=== PATIENT | female | born 1940 | race Caucasian/White ===

== ENCOUNTER 2016-04-06 13:19 | Inpatient (IN) | payer OTHER, MEDICARE ==
[~2016-04-06] VITALS: Ht 170.2 cm; Wt 61.7 kg
[2016-04-06] MEDS ORDERED: FENTANYL PF 100 MCG/2 ML VIAL. ONE (13:51)
[2016-04-06] MEDS ORDERED: FENTANYL PF 100 MCG/2 ML VIAL. IV ONE ×3 (14:00→16:00)
--- NOTE | 2016-04-06 14:49 | RAD ---
CT of the head without contrast, 04/06/2016: History: Fall, possible hemorrhage The ventricles are within normal limits in size. There is no shift of the midline structures. There is no evidence of acute intracranial hemorrhage or mass effect. Minimal deep white matter lucencies are noted bilaterally compatible with chronic ischemic change. IMPRESSION: 1. Minimal bilateral deep white matter lucencies suggesting chronic ischemic change. 2. No acute intracranial abnormality is detected. PQRS Compliance Statement: One or more of the following individualized dose reduction techniques were utilized for this examination: 1. Automated exposure control 2. Adjustment of the mA and/or kV according to patient size 3. Use of iterative reconstruction technique
--- NOTE | 2016-04-06 15:41 | RAD ---
Pelvis with right hip, 2 views, 04/06/2016: History: Fall, pain There is a subcapital fracture of the right femoral neck. There is anterior displacement of the distal fracture fragment. The femoral head is seated within the acetabulum. The hip joints are fairly well-maintained. No other fracture or dislocation is identified. IMPRESSION: Acute subcapital fracture of the right femoral neck
--- NOTE | 2016-04-06 15:44 | RAD ---
Right knee, 3 views, 04/06/2016: History: Fall, injury This study was limited due to poor patient mobility related to her known hip fracture. No acute fracture or dislocation is identified. There is mild spurring at the knee joint and at the patellofemoral articulation. Moderate chondrocalcinosis is evident. IMPRESSION: 1. Degenerative change with chondrocalcinosis. 2. No acute bony abnormality is detected.
--- NOTE | 2016-04-06 15:54 | PHYS DOC ---
Past Medical History Past Medical History: Migraines Past Surgical History: Hysterectomy Additional Past Surgical Histo: breast abcess Alcohol Use: None Drug Use: None Adult General Chief Complaint Chief Complaint: HIP PAIN HPI HPI 75-year-old female who fell onto her right side after tripping. She does believe she hit her head but does not believe she had any loss of conscious. Patient now is unable to bear weight on that side and has significant pain in her right hip as well as her right knee. She denies any significant headache. She denies taking any blood thinners. Review of Systems Review of Systems Constitutional: Denies fever or chills [] Eyes: Denies change in visual acuity, redness, or eye pain [] HENT: Denies nasal congestion or sore throat [] Respiratory: Denies cough or shortness of breath [] Cardiovascular: No additional information not addressed in HPI [] GI: Denies abdominal pain, nausea, vomiting, bloody stools or diarrhea [] : Denies dysuria or hematuria [] Musculoskeletal: Denies back pain, has joint pain [] Integument: Denies rash or skin lesions [] Neurologic: Denies headache, focal weakness or sensory changes [] Endocrine: Denies polyuria or polydipsia [] Current Medications Current Medications Current Medications Medications (Trade) Dose Ordered Sig/[facility] Start Time Stop Time Status Last Admin Dose Admin Fentanyl Citrate (Fentanyl 2ml Vial) 25 mcg 1X ONCE 04/06/16 14:45 04/06/16 14:46 DC 04/06/16 14:55 25 MCG Allergies Allergies Physical Exam Physical Exam Constitutional: Well developed, well nourished, no acute distress, non-toxic appearance. [] HENT: Normocephalic, atraumatic, bilateral external ears normal, oropharynx moist, no oral exudates, nose normal. [] Eyes: PERRLA, EOMI, conjunctiva normal, no discharge. [] Neck: Normal range of motion, no tenderness, supple, no stridor. [] Cardiovascular:Heart rate regular rhythm, no murmur [] Lungs & Thorax: Bilateral breath sounds clear to auscultation [] Abdomen: Bowel sounds normal, soft, no tenderness, no masses, no pulsatile masses. [] Skin: Warm, dry, no erythema, no rash. [] Back: No tenderness, no CVA tenderness. [] Extremities: Moderate tenderness to the right hip, the right lower extremity is shortened and externally rotated, no cyanosis, no clubbing, ROM is not intact in the right lower extremity, no edema. [] Neurologic: Alert and oriented X 3, normal motor function, normal sensory function, no focal deficits noted. [] Psychologic: Affect normal, judgement normal, mood normal. [] Current Patient Data Vital Signs Vital Signs Date Time Temp Pulse Resp B/P Pulse Ox O2 Delivery O2 Flow Rate FiO2 04/06/16 15:30 76 18 157/91 98 Room Air 04/06/16 13:20 97.9 97.9 EKG EKG EKG interpreted by me shows a sinus rhythm with a rate of 81 bpm. This is a normal EKG. There are no acute ischemic findings seen. Radiology/Procedures Radiology/Procedures CT of the head without contrast demonstrates the following: The ventricles are within normal limits in size. There is no shift of the midline structures. There is no evidence of acute intracranial hemorrhage or mass effect. Minimal deep white matter lucencies are noted bilaterally compatible with chronic ischemic change. Right hip film demonstrated an acute subcapital femoral neck fracture. Films of the right knee did not demonstrate any acute fractures. Course & Med Decision Making Course & Med Decision Making Pertinent Labs and Imaging studies reviewed. (See chart for details) This 75-year-old female who's had a slip and fall onto her right hip has an acute subcapital femoral neck fracture. I discussed the need for operative management with the orthopedic surgeon, Dr. Macario, who agreed that the patient can eat tonight but be kept nothing by mouth at midnight for likely surgery tomorrow. She will be put on bedrest and nonweightbearing precautions. Pain medications will be ordered as needed. She was admitted to the hospitalist, Dr. Brito, for further evaluation and treatment. Dragon Disclaimer Dragon Disclaimer This electronic medical record was generated, in whole or in part, using a voice recognition dictation system. Departure Departure Impression: Primary Impression: Closed right hip fracture Disposition: ADMITTED INPATIENT Admitting Physician: Symone Brito Condition: STABLE Referrals: IRASEMA SALEEM (PCP) JUDY MONTOYA DO Apr 06, 2016 15:54
[2016-04-06] MEDS ORDERED: ONDANSETRON PF 4 MG/2 ML VIAL. IV PRN (16:00)
[2016-04-06] MEDS ORDERED: FENTANYL PF 100 MCG/2 ML VIAL. IV PRN (16:00)
--- NOTE | 2016-04-06 16:45 | ACF ---
Admission Forms Criteria MUSCULOSKELETAL DISEASE GRG Clinical Indications for Admission to Inpatient Care (Place 'X' for any and all applicable criteria): Hospital admission is needed for appropriate care of the patient because of ANY ONE of the following: [X]I. Fracture, dislocation, or other musculoskeletal injury requiring inpatient care(medical) as indicated by ANY ONE of the following(4)(5)(6)(7) [ ]a) Vertebral fracture requiring observation for instability or neurologic compromise (8) [ ]b) Compartment syndrome (proven or cannot be ruled out during observation level of care) (9) [ ]c) Limb-threatening injury [ ]d) Major injury requiring inpatient stabilization such as traction initiation or external fixation before internal fixation or closure of complex or open fracture [X]e) Major injury requiring inpatient treatment after emergency or observation level care (as appropriate) [ ]f) Severe pain requiring acute inpatient management [ ]II. Newly diagnosed or suspected bone, joint, or orthopedic device infection (e.g., osteomyelitis, septic arthritis) needing ANY ONE of the following(1)(2)(3) [ ]a) IV antibiotics that cannot be initiated in other than inpatient setting (e.g., patient too unstable or home infusion not available) [ ]b) Device removal or replacement [ ]c) Bone or soft tissue debridement [ ]d) Joint drainage (drain placement or repetitive aspirations) [ ]III. Severe rheumatologic disease (e.g., systemic lupus erythematosus, rheumatoid arthritis) with complications or comorbidities (Also use Optimal Recovery Care Criteria or General Recovery Criteria as appropriate on the basis of predominant condition), including ANY ONE of the following(10 )(11)(12)(13) [ ]a) Severe infection (e.g., INSTALLMENT DEALER infection, sepsis) (14) [ ]b) Respiratory complications, including ANY ONE of the following: [ ]i) Pleural effusion with respiratory compromise [ ]ii) Pulmonary hypertension with congestive failure [ ]iii) Respiratory failure [ ]iv) Pulmonary hemorrhage (15) [ ]c) Hematologic disease, including ANY ONE of the following: [ ]i) Coagulopathy with bleeding [ ]ii) Thrombosis with hypercoagulable state [ ]iii) Thrombotic thrombocytopenic purpura [ ]d) Cerebritis with seizures, psychosis, or other severe abnormalities [ ]e) Vertebral destruction with monitoring needed for cervical myelopathy& possible respiratory compromise [ ]f) Exacerbation that requires inpatient treatment (e.g., intravenous immunosuppression) (16) [ ]g) Acute renal failure [ ]IV. Severe vasculitis with complications or comorbidities (Also use Optimal Recovery Care Criteria or General Recovery Criteria as appropriate on the basis of predominant condition), including ANY ONE of the following(11)(12)(17)(18)(19)(20) [ ]a) INSTALLMENT DEALER vasculitis with seizures, psychosis, or other severe abnormalities (22) [ ]b) Renal failure (16) [ ]c) Pulmonary hemorrhage (15) [ ]d) Cerebral infarction [ ]e) Gastrointestinal ischemia [ ]f) Gangrene or threatened amputation [ ]g) Exacerbation that requires inpatient treatment (e.g., intravenous immunosuppression) (19)(21) [ ]V. Severe myopathy as indicated by ANY ONE of the following (28)(29) [ ]a) New onset of airway compromise or inability to swallow [ ]b) Respiratory deterioration with observation needed for impending respiratory failure [ ]c) Exacerbation that requires inpatient treatment (e.g., intravenous immunosuppression) [ ]. Severe gout (crystal arthropathy) as indicated by ANY ONE of the following (23)(24) [ ]a) Severe pain requiring acute inpatient management [ ]b) Exacerbation that requires inpatient treatment (e.g., intravenous treatment) [ ]VII.Rhabdomyolysis and ANY ONE of the following (25)(26)(27) [ ]a) Acute renal failure [ ]b) Need for intravenous hydration after emergency or observation level care (as appropriate) [ ]c) Inability to maintain oral hydration [ ]d) Change in mental status [ ]e) Electrolyte abnormality that remains after emergency or observation level care (as appropriate) [ ]VIII Post amputation complication, as indicated by ANY ONE of the following [ ]a) Infection [ ]b) Dehiscence [ ]c) Myodesis failure [ ]IX. Severe pain requiring acute inpatient management as indicated by ALL of the following (30)(31)(32) [ ]a) Continuous or frequent (e.g., every 2 to 4 hrs) parenteral analgesics required [A] [ ]b) Rapid improvement expected from treatment or acute intervention ( e.g., surgery, anesthesia procedure[B] [ ]X. Musculoskeletal Disease and ALL of the following: [ ]a) Symptom or finding for which emergency and observation care have failed or are not considered appropriate (Use General Criteria: Observation Care as appropriate) [ ]b) Presence of ANY ONE of the following [ ]i) A General Admission Criteria [ ]ii) A Pediatric General Admission Criteria The original [facility] content created by [facility] has been revised. The portions of the content which have been revised are identified through the use of italic text or in bold, and [facility] has neither reviewed nor approved the modified material. All other unmodified content is copyright [facility]. Please see references footnoted in the original [facility] edition 2016 Admission Criteria Met?: Yes CRISTAL PUGA Apr 06, 2016 16:45
--- NOTE | 2016-04-06 18:06 | PDOC1 ---
History and Physical Date of Admission Date of Admission DATE: 04/06/16 TIME: 18:02 Identification/Chief Complaint Chief Complaint fall, hip pain Source Source: Chart review, Patient History of Present Illness History of Present Illness Ms. 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 She does not know how she fell, no prodrome, no change, no LOC, does not think she tripped, just fell. Fell on her right hip and acute pain could not walk pain pain 9.10, right hip no nausea has declined morphine, as "it has made me feel weird before" doesnt like to take narcotics Past Medical History Cardiovascular: No pertinent hx Pulmonary: No pertinent hx GI: No pertinent hx Heme/Onc: No pertinent hx Hepatobiliary: No pertinent hx Psych: No pertinent hx Family History Family History she lives alone, not , cannot think of any friends to care for her cats or anyone to be DPOA Social History Smoke: No ALCOHOL: none Drugs: None Current Problem List Problem List Problems Medical Problems: (1) Closed right hip fracture Status: Acute Problems: Current Medications Current Medications Current Medications Fentanyl Citrate (Fentanyl 2ml Vial) 100 mcg STK-MED ONCE .ROUTE ; Start at 13:51; Stop 04/06/16 at 13:52; Status DC Fentanyl Citrate (Fentanyl 2ml Vial) 25 mcg 1X ONCE IV Last administered on 14:12; Start 04/06/16 at 14:00; Stop 04/06/16 at 14:01; Status DC Fentanyl Citrate (Fentanyl 2ml Vial) 25 mcg 1X ONCE IV Last administered on 14:55; Start 04/06/16 at 14:45; Stop 04/06/16 at 14:46; Status DC Fentanyl Citrate (Fentanyl 2ml Vial) 50 mcg 1X ONCE IV Last administered on 17:13; Start 04/06/16 at 16:00; Stop 04/06/16 at 16:01; Status DC Ondansetron HCl (Zofran) 4 mg PRN Q8HRS PRN IV NAUSEA/VOMITING Last administered on 04/06/16 17:13; Start 04/06/16 at 16:00; Stop 04/07/16 at 15:59 Fentanyl Citrate (Fentanyl 2ml Vial) 50 mcg PRN Q2HR PRN IV PAIN; Start at 16:00; Stop 04/07/16 at 15:59 Allergies Allergies: Coded Allergies: ibuprofen (Verified Allergy, Intermediate, 12/06/15) ROS General: No: Appetite, Chills, Fatigue, Malaise, Night Sweats, Other PSYCHOLOGICAL ROS: No: Anxiety, Behavioral Disorder, Concentration difficultie , Decreased libido, Depression, Disorientation, Hallucinations, Hostility, Irritablity, Memory difficulties, Mood Swings, Obsessive thoughts, Other, Physical abuse, Sexual abuse, Sleep disturbances, Suicidal ideation Eyes: No Blurry vision, No Decreased vision, No Double vision, No Dry eyes, No Excessive tearing, No Eye Pain, No Itchy Eyes, No Loss of vision, No Other, No Photophobia, No Scotomata, No Uses contacts, No Uses glasses HEENT: No: Epistaxis, Heacaches, Hearing change, Nasal congestion, Nasal discharge, Oral lesions, Other, Sinus pain, Sneezing, Snoring, Sore Throat, Tinnitus, Vertigo, Visual Changes, Vocal changes Cardiovascular: No Chest Pain, No Edema, No Lt Headedness, No Orthopnea, No Other, No Palpitations, No Paroxysmal Noc. Dyspnea Gastrointestinal: No Abdominal Pain, No Constipation, No Diarrhea, No Hematochezia, No Melena, No Nausea, No Other, No Vomiting Genitourinary: No , No , No , No , No , No , No , No Discharge, No Dysuria, No Flank Pain, No Frequency, No Hematuria, No Incontinence, No Other, No Pain, No Retention, No Urgency Musculoskeletal: Yes Gait Disturbance, Yes Joint Pain, Yes Joint Stiffness, Yes Pain In:, No Joint Swelling, No Muscle Pain, No Muscular Weakness, No Other, No Swelling In: Neurological: Yes Gait Disturbance, No Behavorial Changes, No Bowel/Bladder ControlChng, No Confusion, No Dizziness, No Headaches, No Impaired Coord/balance, No Memory Loss, No Numbness/ Tingling, No Other, No Seizures, No Speech Problems, No Tremors, No Visual Changes, No Weakness Skin: No Acne, No Dry Skin, No Eczema, No Hair Changes, No Lumps, No Mole Changes, No Mottling, No Nail Changes, No Other, No Pruritus, No Rash, No Skin Lesion Changes Physical Exam Physical Exam appears younger than chronological age General: Alert, Oriented X3, Cooperative, mild distress, moderate distress HEENT: Atraumatic, PERRLA, EOMI Lungs: Clear to auscultation, Normal air movement Heart: S1S2 Extremities: No clubbing, No edema, Normal pulses Skin: No rashes Neuro: Normal gait, Normal speech, Normal tone, Sensation intact, Cranial nerves 3-12 NL, Other (good str) Psych/Mental Status: Mental status NL, Mood NL Vitals Vitals Vital Signs Date Time Temp Pulse Resp B/P Pulse Ox O2 Delivery O2 Flow Rate FiO2 04/06/16 15:00 88 16 158/80 99 Room Air 04/06/16 13:20 97.9 97.9 VTE Prophylaxis Ordered VTE Prophylaxis Devices: Contraindicated VTE Pharmacological Prophylaxi: No Assessment/Plan Assessment/Plan Acute subcapital fracture of the right femoral neck right hip fracture w. acute hip pain, 9/10, IV and Po pain med. all labs pending, Toradol IV if Creatinine OK admit, Ortho consult [place], cannot transfer or roll ADRIAN JENSEN MD Apr 06, 2016 18:06
[2016-04-06] MEDS ORDERED: KETOROLAC 15 MG/ML VIAL. IV ONE (18:15)
[2016-04-06] MEDS ORDERED: OXYCODONE/APAP 5/325 TABLET. PO PRN (18:15)
[2016-04-06 19:06] LABS: BASO # 0.1 x10^3/uL (0.0-0.2); BASO % 1 % (0-3); EOS % 0 % (0-3); HEMATOCRIT 40.9 % (36.0-47.0); HEMOGLOBIN 13.1 g/dL (12.0-15.5); LYMPH % 7 % (24-48); MEAN CORPUSCULAR HEMOGLOBIN 30 pg (25-35); MEAN CORPUSCULAR HGB CONC 32 g/dL (31-37); MEAN CORPUSCULAR VOLUME 93 fL (79-100); MONO % 4 % (0-9); NEUT % 88 % (31-73); PLATELET COUNT 171 x10^3/uL (140-400); RED CELL DISTRIBUTION WIDTH 14.2 % (11.5-14.5); WHITE BLOOD COUNT 13.5 x10^3/uL (4.0-11.0)
[2016-04-06 19:23] LABS: ALBUMIN 3.9 g/dL (3.4-5.0); ALBUMIN/GLOBULIN RATIO 1.1 (1.0-1.7); CALCIUM 9.1 mg/dL (8.5-10.1); CREATININE 0.7 mg/dL (0.6-1.0); POTASSIUM 3.3 mmol/L (3.5-5.1); TOTAL BILIRUBIN 0.8 mg/dL (0.2-1.0); TOTAL PROTEIN 7.4 g/dL (6.4-8.2)
[2016-04-06 19:31] LABS: PLT ESTIMATE ADEQUATE (ADEQUATE)
[2016-04-06] MEDS ORDERED: PROP10TA PO (20:03)
[2016-04-06] MEDS ORDERED: KETOROLAC 15 MG/ML VIAL. IV PRN (20:15)
[2016-04-06] MEDS ORDERED: POTASSIUM CHLORIDE 20 MEQ TABLET.ER. PO ONE (20:15)
[2016-04-06] MEDS: TRAMADOL 50 MG TABLET. PO PRN (21:20)
[2016-04-06] MEDS: PROPRANOLOL 10 MG TABLET. PO SCH (21:20)
[2016-04-06 21:59] VITALS: BP 126/72
[2016-04-06] MEDS: ZOLPIDEM 5 MG TABLET. PO PRN (23:00)
[2016-04-06] MEDS: FENTANYL PF 100 MCG/2 ML VIAL. IV PRN (23:22)
[2016-04-06 23:38] VITALS: BP 138/78
[2016-04-07] VITALS (12 sets, daily range): BP systolic 103–150; BP diastolic 68–83
[2016-04-07] MEDS: FENTANYL PF 100 MCG/2 ML VIAL. IV PRN (01:47)
[2016-04-07 06:28] LABS: BASO % 0 % (0-3); EOS % 0 % (0-3); HEMOGLOBIN 13.4 g/dL (12.0-15.5); LYMPH # 1.6 x10^3/uL (1.0-4.8); LYMPH % 11 % (24-48); MEAN CORPUSCULAR HEMOGLOBIN 30 pg (25-35); MEAN CORPUSCULAR HGB CONC 33 g/dL (31-37); MEAN CORPUSCULAR VOLUME 91 fL (79-100); MONO % 6 % (0-9); NEUT % 83 % (31-73); PLATELET COUNT 187 x10^3/uL (140-400); WHITE BLOOD COUNT 14.2 x10^3/uL (4.0-11.0)
[2016-04-07 06:30] LABS: CREATININE 0.7 mg/dL (0.6-1.0); POTASSIUM 3.6 mmol/L (3.5-5.1)
--- NOTE | 2016-04-07 07:46 | EKG ---
[facility] [address] [place] [address] Test Date: 2016-04-06 Test Time: 17:04:28 Pat Name: IRASEMA REN Department: Room: Gender: F Messaging Architect: : [id number] Requested By: JUDY MONTOYA Order Number: [id number] Reading MD: Measurements Intervals [place] Rate: 81 P: 60 LA: 150 QRS: 34 QRSD: 86 T: 56 QT: 374 QTc: 435 Interpretive Statements SINUS RHYTHM NO SPECIFIC ECG ABNORMALITIES RI6.01 No previous ECG available for comparison
[2016-04-07] MEDS ORDERED: VANCOMYCIN 1 GM VIAL. ONE (08:13)
[2016-04-07] MEDS ORDERED: TOBRAMYCIN POWDER 1.2 GM VIAL. ONE (08:13)
[2016-04-07] MEDS ORDERED: DIPHENHYDRAMINE 50 MG/ML VIAL IV PRN (09:00)
[2016-04-07] MEDS ORDERED: PROCHLORPERAZINE 10 MG/2 ML VIAL. IV PRN (09:00)
[2016-04-07] MEDS ORDERED: MORPHINE SULFATE 4 MG/ML DISP.SYRIN. IV PRN ×2 (09:00→14:00)
[2016-04-07] MEDS ORDERED: HYDROMORPHONE 2 MG/ML VIAL. IV PRN (09:00)
[2016-04-07] MEDS ORDERED: MEPERIDINE PF 25 MG/ML VIAL. IV PRN (09:00)
[2016-04-07] MEDS ORDERED: FENTANYL PF 100 MCG/2 ML VIAL. IV PRN ×2 (09:00→14:00)
[2016-04-07] MEDS: PROPRANOLOL 10 MG TABLET. PO SCH ×2 (09:16→21:17)
[2016-04-07] MEDS ORDERED: CEFAZOLIN 1GM IVPB FOR OMNI 50 ML IV PRN (09:45)
[2016-04-07] MEDS: IV RINGERS,LACTATED 1000ML 1,000 ML IV SCH ×2 (11:10→21:15)
[2016-04-07] MEDS ORDERED: PROPOFOL 100 ML IV ONE (11:30)
[2016-04-07] MEDS ORDERED: KETAMINE HCL 500 MG/10 ML VIAL. ONE (11:32)
[2016-04-07] MEDS ORDERED: ONDANSETRON PF 4 MG/2 ML VIAL. ONE (11:36)
[2016-04-07] MEDS ORDERED: DEXAMETHASONE SOD PHOS 20 MG/5 ML VIAL. ONE (11:36)
[2016-04-07] MEDS ORDERED: FAMOTIDINE 20 MG/2 ML VIAL ONE (11:36)
[2016-04-07] MEDS ORDERED: FENTANYL PF 100 MCG/2 ML VIAL. ONE (11:38)
--- NOTE | 2016-04-07 11:56 | PDOC ---
PROGRESS NOTES Chief Complaint Chief Complaint R hip fx s/p fall ASSESSMENT AND PLAN: 1. R hip fx: ORIF today by Dr Macario 2. Pain control: IV and PO narcotics PRN 3. Prophylaxis: in AM Vitals Vitals Vital Signs Date Time Temp Pulse Resp B/P Pulse Ox O2 Delivery O2 Flow Rate FiO2 04/07/16 10:39 99.6 82 20 148/80 95 Room Air 99.6 Physical Exam General: Alert, Oriented X3, Cooperative, mild distress, moderate distress Heart: Regular rate Lungs: Clear Abdomen: Normal bowel sounds, No tenderness Extremities: No clubbing, No edema, Normal pulses Skin: No rashes Labs LABS Laboratory Tests Test 04/06/16 18:50 04/07/16 05:40 White Blood Count 13.5x10^3/uL (4.0-11.0) 14.2x10^3/uL (4.0-11.0) Red Blood Count 4.40x10^6/uL (3.50-5.40) 4.50x10^6/uL (3.50-5.40) Hemoglobin 13.1g/dL (12.0-15.5) 13.4g/dL (12.0-15.5) Hematocrit 40.9% (36.0-47.0) 41.0% (36.0-47.0) Mean Corpuscular Volume 93fL (79-100) 91fL (79-100) Mean Corpuscular Hemoglobin 30pg (25-35) 30pg (25-35) Mean Corpuscular Hemoglobin Concent 32g/dL (31-37) 33g/dL (31-37) Red Cell Distribution Width 14.2% (11.5-14.5) 14.0% (11.5-14.5) Platelet Count 171x10^3/uL (140-400) 187x10^3/uL (140-400) Neutrophils (%) (Auto) 88% (31-73) 83% (31-73) Lymphocytes (%) (Auto) 7% (24-48) 11% (24-48) Monocytes (%) (Auto) 4% (0-9) 6% (0-9) Eosinophils (%) (Auto) 0% (0-3) 0% (0-3) Basophils (%) (Auto) 1% (0-3) 0% (0-3) Neutrophils # (Auto) 11.9x10^3uL (1.8-7.7) 11.7x10^3uL (1.8-7.7) Lymphocytes # (Auto) 1.0x10^3/uL (1.0-4.8) 1.6x10^3/uL (1.0-4.8) Monocytes # (Auto) 0.5x10^3/uL (0.0-1.1) 0.9x10^3/uL (0.0-1.1) Eosinophils # (Auto) 0.0x10^3/uL (0.0-0.7) 0.0x10^3/uL (0.0-0.7) Basophils # (Auto) 0.1x10^3/uL (0.0-0.2) 0.0x10^3/uL (0.0-0.2) Segmented Neutrophils % 89% (35-66) Lymphocytes % 6% (24-48) Monocytes % 5% (0-10) Platelet Estimate Adequate (ADEQUATE) Prothrombin Time 13.0SEC (11.7-14.0) Prothromb Time International Ratio 1.0 (0.8-1.1) Sodium Level 137mmol/L (136-145) 133mmol/L (136-145) Potassium Level 3.3mmol/L (3.5-5.1) 3.6mmol/L (3.5-5.1) Chloride Level 101mmol/L (98-107) 96mmol/L (98-107) Carbon Dioxide Level 25mmol/L (21-32) 26mmol/L (21-32) Anion Gap 11 (6-14) 11 (6-14) Blood Urea Nitrogen 11mg/dL (7-20) 10mg/dL (7-20) Creatinine 0.7mg/dL (0.6-1.0) 0.7mg/dL (0.6-1.0) Estimated GFR (Cockcroft-Gault) 82.0 82.0 BUN/Creatinine Ratio 16 (6-20) Glucose Level 120mg/dL (70-99) 122mg/dL (70-99) Calcium Level 9.1mg/dL (8.5-10.1) 9.0mg/dL (8.5-10.1) Total Bilirubin 0.8mg/dL (0.2-1.0) Aspartate Amino Transf (AST/SGOT) 21U/L (15-37) Alanine Aminotransferase (ALT/SGPT) 22U/L (14-59) Alkaline Phosphatase 68U/L (46-116) Total Protein 7.4g/dL (6.4-8.2) Albumin 3.9g/dL (3.4-5.0) Albumin/Globulin Ratio 1.1 (1.0-1.7) Review of Systems Review of Systems hip pain fairly well controlled GIOVANNI MANCIA MD Apr 07, 2016 11:56
[2016-04-07] MEDS ORDERED: TRANEXAMIC ACID 1,000 MG in IV NORMAL SALINE 50ML 50 ML INJ ONE ×2 (12:00→13:00)
[2016-04-07] MEDS ORDERED: MORPHINE SULFATE 5 MG, ROPIVacaine 0.5% PF 60 ML, EPINEPHRINE 0.5 MG in IV NORMAL SALIN... INT ART ONE (12:00)
[2016-04-07] MEDS ORDERED: MIDAZOLAM HCL 2 MG/2 ML VIAL. ONE (12:12)
--- NOTE | 2016-04-07 12:36 | PDOC2 ---
CONSULT Date of Consult Date of Consult DATE: 04/07/16 TIME: 12:28 Identification/Chief Complaint Chief Complaint right hip pain after fall Source Source: Chart review, Patient History of Present Illness Reason for Visit: 75 year old woman who works 2 jobs, lives alone, drives and has 2 pets. She fell at work. She doesn't remember tripping or why she fell. Immediate right hip pain after and inability to ambulate after her fall. Admitted with displaced right hip femoral neck fracture. Past Medical History Cardiovascular: No pertinent hx Pulmonary: No pertinent hx GI: No pertinent hx Heme/Onc: No pertinent hx Hepatobiliary: No pertinent hx Psych: No pertinent hx Social History No ALCOHOL: none Drugs: None Current Problem List Problem List Problems Medical Problems: (1) Closed right hip fracture Status: Acute Current Medications Current Medications Current Medications Fentanyl Citrate (Fentanyl 2ml Vial) 100 mcg STK-MED ONCE .ROUTE ; Start at 13:51; Stop 04/06/16 at 13:52; Status DC Fentanyl Citrate (Fentanyl 2ml Vial) 25 mcg 1X ONCE IV Last administered on 14:12; Start 04/06/16 at 14:00; Stop 04/06/16 at 14:01; Status DC Fentanyl Citrate (Fentanyl 2ml Vial) 25 mcg 1X ONCE IV Last administered on 14:55; Start 04/06/16 at 14:45; Stop 04/06/16 at 14:46; Status DC Fentanyl Citrate (Fentanyl 2ml Vial) 50 mcg 1X ONCE IV Last administered on 17:13; Start 04/06/16 at 16:00; Stop 04/06/16 at 16:01; Status DC Ondansetron HCl (Zofran) 4 mg PRN Q8HRS PRN IV NAUSEA/VOMITING Last administered on 04/06/16 17:13; Start 04/06/16 at 16:00; Stop 04/07/16 at 15:59 Fentanyl Citrate (Fentanyl 2ml Vial) 50 mcg PRN Q2HR PRN IV PAIN; Start at 16:00; Stop 04/07/16 at 00:00; Status DC Ketorolac Tromethamine (Toradol) 15 mg 1X ONCE IV ; Start 04/06/16 at 18:15; Stop 04/06/16 at 18:16; Status UNV Oxycodone/ Acetaminophen (Percocet 5/325) 1 tab PRN Q4HRS PRN PO PAIN; Start at 18:15 Potassium Chloride (Klor-Con) 20 meq 1X ONCE PO Last administered on 21:19; Start 04/06/16 at 20:15; Stop 04/06/16 at 20:16; Status DC Ketorolac Tromethamine (Toradol) 15 mg PRN Q6HRS PRN IV PAIN; Start 04/06/16 at 20:15; Stop 04/11/16 at 20:14; Status UNV Acetaminophen (Tylenol) 650 mg PRN Q6HRS PRN PO MILD PAIN / TEMP; Start at 20:15 Propranolol HCl (Inderal) 10 mg BID PO Last administered on 04/07/16 09:16; Start 04/06/16 at 21:00 Tramadol HCl (Ultram) 50 mg PRN Q6HRS PRN PO PAIN Last administered on 21:20; Start 04/06/16 at 20:15 Fentanyl Citrate (Fentanyl 2ml Vial) 25 mcg PRN Q2HR PRN IV SEVERE PAIN Last administered on 04/07/16 01:47; Start 04/06/16 at 22:00 Zolpidem Tartrate (Ambien) 5 mg PRN QHS PRN PO INSOMNIA, MAY REPEAT IN 1HR Last administered on 04/06/16 23:00; Start 04/06/16 at 22:00 Tobramycin Sulfate 1.2 gm STK-MED ONCE .ROUTE ; Start 04/07/16 at 08:13; Stop at 08:14; Status DC Vancomycin HCl 1 gm STK-MED ONCE .ROUTE ; Start 04/07/16 at 08:13; Stop at 08:14; Status DC Fentanyl Citrate (Fentanyl 2ml Vial) 50 mcg PRN Q5MIN PRN IV Acute Pain; Start 04/07/16 at 09:00; Stop 04/07/16 at 18:00 Morphine Sulfate 4 mg PRN Q10MIN PRN IV Moderate Pain; Start 04/07/16 at 09:00 ; Stop 04/07/16 at 18:00 Hydromorphone HCl (Dilaudid) 0.4 mg PRN Q10MIN PRN IV Moderate to severe pain; Start 04/07/16 at 09:00; Stop 04/07/16 at 18:00 Meperidine HCl (Demerol) 12.5 mg PRN Q5MIN PRN IV SHIVERING; Start 04/07/16 at 09:00; Stop 04/08/16 at 08:59 Prochlorperazine Edisylate (Compazine) 5 mg PRN Q6HRS PRN IV Nausea/Vomiting, 1st Choice; Start 04/07/16 at 09:00; Stop 04/07/16 at 18:00 Diphenhydramine HCl 12.5 mg 12.5 mg PRN Q2HR PRN IV ITCHING; Start 04/07/16 at 09:00; Stop 04/07/16 at 18:00 Cefazolin Sodium 50 ml @ 100 mls/hr 1X PREOP PRN IV see comments; Start at 09:45 Lactated Ringer's 1,000 ml @ 100 mls/hr Q10H IV Last administered on t 11:10; Start 04/07/16 at 11:15 Tranexamic Acid 1000 mg/Sodium Chloride 60 ml @ 60 mls/hr 1X PERIOP ONCE INJ ; Start 04/07/16 at 12:00; Stop 04/07/16 at 12:59 Tranexamic Acid 1000 mg/Sodium Chloride 60 ml @ 60 mls/hr 1X PERIOP ONCE INJ ; Start 04/07/16 at 13:00; Stop 04/07/16 at 13:59 Morphine Sulfate 5 mg/Ropivacaine 60 ml/Epinephrine HCl 0.5 mg/Sodium Chloride 99.5 ml @ 99.5 mls/hr 1X PERIOP ONCE INT ART ; Start 04/07/16 at 12:00; Stop 04/07/16 at 12:59 Propofol (Diprivan) 100 ml @ As Directed STK-MED ONCE IV ; Start 04/07/16 at 11 :30; Stop 04/07/16 at 11:31; Status DC Ketamine HCl 500 mg STK-MED ONCE .ROUTE ; Start 04/07/16 at 11:32; Stop at 11:33; Status DC Dexamethasone Sodium Phosphate (Decadron) 20 mg STK-MED ONCE .ROUTE ; Start at 11:36; Stop 04/07/16 at 11:37; Status DC Ondansetron HCl (Zofran) 4 mg STK-MED ONCE .ROUTE ; Start 04/07/16 at 11:36; Stop 04/07/16 at 11:37; Status DC Famotidine (Pepcid) 20 mg STK-MED ONCE .ROUTE ; Start 04/07/16 at 11:36; Stop at 11:37; Status DC Fentanyl Citrate (Fentanyl 2ml Vial) 100 mcg STK-MED ONCE .ROUTE ; Start at 11:38; Stop 04/07/16 at 11:39; Status DC Midazolam HCl (Versed) 2 mg STK-MED ONCE .ROUTE ; Start 04/07/16 at 12:12; Stop 04/07/16 at 12:13; Status DC Active Scripts Active Reported Propranolol Hcl 10 Mg Tablet 10 Mg PO BID Allergies Allergies: Coded Allergies: NSAIDS (Non-Steroidal Anti-Inflamma (Verified Allergy, Intermediate, Rash , 04/06/16) Physical Exam General: Alert, Cooperative HEENT: Atraumatic Lungs: Normal air movement Heart: Regular rate Abdomen: Soft Extremities: Other (right lower extremity shortened and rotated. Pain in right groin, especially with any motion. Skin intact over fracture. Distal sensorimotor intact within the limits of exam. ) Skin: Other (skin intact over fracture. No ecchymosis at this time.) Neuro: Normal speech, Sensation intact MUSCULOSKELETAL: Abnormal exam of right (lower extremity as above. Left lower extremity and both upper extremities show normal alignment, no swelling, normal range of motion with no crepitus, and normal skin, pulses and sensation.) Vitals VITALS Vital Signs Date Time Temp Pulse Resp B/P Pulse Ox O2 Delivery O2 Flow Rate FiO2 04/07/16 10:39 99.6 82 20 148/80 95 Room Air 99.6 Labs Labs Laboratory Tests Test 04/06/16 18:50 04/07/16 05:40 White Blood Count 13.5x10^3/uL (4.0-11.0) 14.2x10^3/uL (4.0-11.0) Red Blood Count 4.40x10^6/uL (3.50-5.40) 4.50x10^6/uL (3.50-5.40) Hemoglobin 13.1g/dL (12.0-15.5) 13.4g/dL (12.0-15.5) Hematocrit 40.9% (36.0-47.0) 41.0% (36.0-47.0) Mean Corpuscular Volume 93fL (79-100) 91fL (79-100) Mean Corpuscular Hemoglobin 30pg (25-35) 30pg (25-35) Mean Corpuscular Hemoglobin Concent 32g/dL (31-37) 33g/dL (31-37) Red Cell Distribution Width 14.2% (11.5-14.5) 14.0% (11.5-14.5) Platelet Count 171x10^3/uL (140-400) 187x10^3/uL (140-400) Neutrophils (%) (Auto) 88% (31-73) 83% (31-73) Lymphocytes (%) (Auto) 7% (24-48) 11% (24-48) Monocytes (%) (Auto) 4% (0-9) 6% (0-9) Eosinophils (%) (Auto) 0% (0-3) 0% (0-3) Basophils (%) (Auto) 1% (0-3) 0% (0-3) Neutrophils # (Auto) 11.9x10^3uL (1.8-7.7) 11.7x10^3uL (1.8-7.7) Lymphocytes # (Auto) 1.0x10^3/uL (1.0-4.8) 1.6x10^3/uL (1.0-4.8) Monocytes # (Auto) 0.5x10^3/uL (0.0-1.1) 0.9x10^3/uL (0.0-1.1) Eosinophils # (Auto) 0.0x10^3/uL (0.0-0.7) 0.0x10^3/uL (0.0-0.7) Basophils # (Auto) 0.1x10^3/uL (0.0-0.2) 0.0x10^3/uL (0.0-0.2) Segmented Neutrophils % 89% (35-66) Lymphocytes % 6% (24-48) Monocytes % 5% (0-10) Platelet Estimate Adequate (ADEQUATE) Prothrombin Time 13.0SEC (11.7-14.0) Prothromb Time International Ratio 1.0 (0.8-1.1) Sodium Level 137mmol/L (136-145) 133mmol/L (136-145) Potassium Level 3.3mmol/L (3.5-5.1) 3.6mmol/L (3.5-5.1) Chloride Level 101mmol/L (98-107) 96mmol/L (98-107) Carbon Dioxide Level 25mmol/L (21-32) 26mmol/L (21-32) Anion Gap 11 (6-14) 11 (6-14) Blood Urea Nitrogen 11mg/dL (7-20) 10mg/dL (7-20) Creatinine 0.7mg/dL (0.6-1.0) 0.7mg/dL (0.6-1.0) Estimated GFR (Cockcroft-Gault) 82.0 82.0 BUN/Creatinine Ratio 16 (6-20) Glucose Level 120mg/dL (70-99) 122mg/dL (70-99) Calcium Level 9.1mg/dL (8.5-10.1) 9.0mg/dL (8.5-10.1) Total Bilirubin 0.8mg/dL (0.2-1.0) Aspartate Amino Transf (AST/SGOT) 21U/L (15-37) Alanine Aminotransferase (ALT/SGPT) 22U/L (14-59) Alkaline Phosphatase 68U/L (46-116) Total Protein 7.4g/dL (6.4-8.2) Albumin 3.9g/dL (3.4-5.0) Albumin/Globulin Ratio 1.1 (1.0-1.7) Laboratory Tests Test 04/06/16 18:50 04/07/16 05:40 White Blood Count 13.5x10^3/uL (4.0-11.0) 14.2x10^3/uL (4.0-11.0) Red Blood Count 4.40x10^6/uL (3.50-5.40) 4.50x10^6/uL (3.50-5.40) Hemoglobin 13.1g/dL (12.0-15.5) 13.4g/dL (12.0-15.5) Hematocrit 40.9% (36.0-47.0) 41.0% (36.0-47.0) Mean Corpuscular Volume 93fL (79-100) 91fL (79-100) Mean Corpuscular Hemoglobin 30pg (25-35) 30pg (25-35) Mean Corpuscular Hemoglobin Concent 32g/dL (31-37) 33g/dL (31-37) Red Cell Distribution Width 14.2% (11.5-14.5) 14.0% (11.5-14.5) Platelet Count 171x10^3/uL (140-400) 187x10^3/uL (140-400) Neutrophils (%) (Auto) 88% (31-73) 83% (31-73) Lymphocytes (%) (Auto) 7% (24-48) 11% (24-48) Monocytes (%) (Auto) 4% (0-9) 6% (0-9) Eosinophils (%) (Auto) 0% (0-3) 0% (0-3) Basophils (%) (Auto) 1% (0-3) 0% (0-3) Neutrophils # (Auto) 11.9x10^3uL (1.8-7.7) 11.7x10^3uL (1.8-7.7) Lymphocytes # (Auto) 1.0x10^3/uL (1.0-4.8) 1.6x10^3/uL (1.0-4.8) Monocytes # (Auto) 0.5x10^3/uL (0.0-1.1) 0.9x10^3/uL (0.0-1.1) Eosinophils # (Auto) 0.0x10^3/uL (0.0-0.7) 0.0x10^3/uL (0.0-0.7) Basophils # (Auto) 0.1x10^3/uL (0.0-0.2) 0.0x10^3/uL (0.0-0.2) Segmented Neutrophils % 89% (35-66) Lymphocytes % 6% (24-48) Monocytes % 5% (0-10) Platelet Estimate Adequate (ADEQUATE) Prothrombin Time 13.0SEC (11.7-14.0) Prothromb Time International Ratio 1.0 (0.8-1.1) Sodium Level 137mmol/L (136-145) 133mmol/L (136-145) Potassium Level 3.3mmol/L (3.5-5.1) 3.6mmol/L (3.5-5.1) Chloride Level 101mmol/L (98-107) 96mmol/L (98-107) Carbon Dioxide Level 25mmol/L (21-32) 26mmol/L (21-32) Anion Gap 11 (6-14) 11 (6-14) Blood Urea Nitrogen 11mg/dL (7-20) 10mg/dL (7-20) Creatinine 0.7mg/dL (0.6-1.0) 0.7mg/dL (0.6-1.0) Estimated GFR (Cockcroft-Gault) 82.0 82.0 BUN/Creatinine Ratio 16 (6-20) Glucose Level 120mg/dL (70-99) 122mg/dL (70-99) Calcium Level 9.1mg/dL (8.5-10.1) 9.0mg/dL (8.5-10.1) Total Bilirubin 0.8mg/dL (0.2-1.0) Aspartate Amino Transf (AST/SGOT) 21U/L (15-37) Alanine Aminotransferase (ALT/SGPT) 22U/L (14-59) Alkaline Phosphatase 68U/L (46-116) Total Protein 7.4g/dL (6.4-8.2) Albumin 3.9g/dL (3.4-5.0) Albumin/Globulin Ratio 1.1 (1.0-1.7) Images Images pelvis and hip x-ray images and report reviewed. Displaced right hip femoral neck fracture. Assessment/Plan Assessment/Plan closed right hip femoral neck fracture.Pathologic fracture based on history. No lytic lesion or obvious pathology noted on x-ray, but will send specimen for path. I discussed cemented bipolar arthroplasty with her along with the risks and benefits. Briefly discussed nonoperative treatment with bedrest but explained why that's not recommended. We discussed risks of bleeding, blood clots, dislocation, need for revision, nerve or artery injury (linda sciatic nerve) and risk of leg length discrepancy. Benefits of early mobilization discussed. All Qs answered and she desires to proceed. CHRISTOPHER DYER MD Apr 07, 2016 12:36
[2016-04-07] MEDS ORDERED: EPINEPHRINE 30 MG/30 ML VIAL. ONE (12:55)
[2016-04-07] MEDS ORDERED: PHENYLEPHRINE in 0.9% NACL PF 1 MG/10 ML DISP.SYRIN. IV ONE (12:59)
[2016-04-07] MEDS ORDERED: EPHEDRINE PF IN SALINE 50 MG/5 ML DISP.SYRIN. IV ONE (13:00)
[2016-04-07] MEDS ORDERED: ACETAMINOPHEN INTRAVENOUS 100 ML IV ONE (13:42)
--- NOTE | 2016-04-07 13:49 | PDOC4 ---
Operative Note Operative Note Date of Procedure: 04/07/2016 Pre-Op Diagnosis: right hip femoral neck fracture Post-Op Diagnosis: right hip femoral neck fracture Procedure/Anesthesia: right hip bipolar arthroplasty Anesthesia Type: Spinal Surgeon: Christopher Macario MD Pig Conveyor Operator: Henny ochoa tech EBL: 100 mL Specimens Obtained: femoral head Complications: None Implant Company: [employer] Drains: Hemovac plus pain catheter INDICATION FOR PROCEDURE: The patient is a 75year-old who fell, fracturing the right hip. X-rays show a femoral neck fracture. The patient and I discussed the risks, benefits and alternatives of treatment. The alternative for treatment is bedrest, which I generally do not recommend. I recommended a cemented bipolar arthroplasty, and I talked to her about the potential risks of this, including bleeding, infection, blood clots, dislocation, leg length discrepancy or other potential surgical or anesthetic complications. All of her questions were answered about surgery and she desired to proceed. A written consent was obtained. PROCEDURE IN DETAIL: The patient was identified in the preoperative holding area. The correct right hip was marked by me. The patient was taken to the operating room where a spinal anesthetic was used. Preoperative antibiotics were given intravenously. The patient was positioned laterally on a pisano-bag with the bony prominences well padded. A time-out procedure was performed. All of the operating team wore the personal ventilated exhaust scrub suits. The hip and limb were thoroughly prepped sterilely, and then draping was performed, using a sterile [place] hip drape and an impervious stockinette such that the skin was entirely covered. A posterior approach to the hip was used. Sharp dissection was used and Bovie electrocautery was used for hemostasis. Gelpi retractors were placed. Bovie electrocautery was used and the fascia was exposed. The fascia was divided sharply and then a Charnley retractor was placed. My assistant auto center manager internally rotated the hip and I divided the short external rotators off the posterior aspect of the hip. The Charnley retractor was placed deeper now to protect the sciatic nerve with the short external rotators. The capsule was divided in an inverted T fashion. The fracture was identified. The neck was recut with a saw. The neck fragment was removed. The head was removed with a corkscrew and measured using templates. The acetabulum was cleared of bony fragments. The lateral aspect of the cut femoral neck was exposed. A box osteotome was used to enlarge the entry, at the lateral cortex of the femoral neck. A manual T-handle canal finder was used first, followed by sequential power reaming based on x-rays sizing and intramedullary bone chatter. Sequential broaching was then performed and then the calcar reamer was used to ream the neck on the final broach. Different head and neck lengths were trialed until satisfactory length and stability were achieved in full extension, hip flexion of 90 degrees , and internal rotation. Trial components were removed, and the canal was irrigated thoroughly with the Simpulse device, and then dried carefully. A cement restrictor was placed. The final implants were opened based on the trial sizing. Two packages of radiopaque bone cement were mixed with 1 gram of Vancomycin and 1.2 grams of Tobramycin, and then were vacuum-mixed with the monomer, and placed into a cement gun. The cement was now pressurized down the canal against the cement restrictor using a third-generation cementing technique. The final stem was now cemented, and after excess cement was removed , the stem was held in an anteverted and valgus position until the cement hardened. The final head assembly was tamped onto the Frank taper. The hip was reduced a final time with my assistant auto center manager applying longitudinal traction and rotation, while I guided the head into the acetabulum. A final check was made of limb length and stability in multiple positions. Copious irrigation was used. A periarticular injection was used. Hemovac and pain catheters were placed. The capsule was closed with #2 Ethibond. The fascia was closed with # 1 Vicryl. Absorbable 2-0 Vicryl suture was used in the subcutaneous tissues, and radha were placed in the skin. Xeroform and a bulky sterile dressing were applied. An abduction pillow was used. The patient tolerated the procedure well. Needle and sponge counts were correct. There were no apparent complications. CHRISTOPHER MACARIO MD Apr 07, 2016 13:48
[2016-04-07] MEDS ORDERED: MORPHINE SULFATE 2 MG/ML DISP.SYRIN. IV PRN (14:00)
[2016-04-07] MEDS ORDERED: ONDANSETRON PF 4 MG/2 ML VIAL. IV PRN (14:00)
[2016-04-07] MEDS ORDERED: DEXTROSE 50% 25 GM / 50ML DISP.SYRIN. IV PRN (14:00)
[2016-04-07] MEDS ORDERED: OXYCODONE IR 5 MG TABLET. PO PRN (14:00)
[2016-04-07] MEDS ORDERED: TRAMADOL 50 MG TABLET. PO PRN (14:00)
[2016-04-07] MEDS: ACETAMINOPHEN 500 MG TABLET PO SCH ×2 (14:00→21:17)
[2016-04-07] MEDS ORDERED: HYDROCODONE/APAP 7.5/325MG TABLET. PO PRN ×2 (14:00)
[2016-04-07] MEDS ORDERED: POLYETHYLENE GLYCOL 3350 17 GM PACKET. PO PRN (14:00)
--- NOTE | 2016-04-07 17:03 | RAD ---
Portable right hip, 2 views, 04/07/2016: History: Postop evaluation The fractured right femoral head and neck have been resected with a bipolar hip prosthesis inserted. It appears to be in satisfactory position. Surgical skin clips and a drain overlie the operative site laterally. There is no evidence of a retained surgical instrument, needle or radiopaque sponge IMPRESSION: Interval insertion of a bipolar right hip prosthesis in satisfactory position.
[2016-04-07] MEDS: CEFAZOLIN SODIUM 1 GM in IV NORMAL SALINE 50ML 50 ML IV SCH (17:39)
[2016-04-07] MEDS: IV 1/2 NORMAL SALINE 1,000 ML IV SCH (17:40)
[2016-04-07] MEDS: BUPIVACAINE MPF 0.25% 20 ML, EPINEPHRINE 0.5 MG in TOTAL VOLUME SYRINGE 21.5 ML INT ART SCH (18:36)
[2016-04-07] MEDS ORDERED: PROPRANOLOL 10 MG TABLET. PO SCH (21:00)
[2016-04-08] MEDS: CEFAZOLIN SODIUM 1 GM in IV NORMAL SALINE 50ML 50 ML IV SCH ×2 (00:40→05:47)
[2016-04-08] MEDS: TRAMADOL 50 MG TABLET. PO PRN (00:44)
[2016-04-08 03:00] VITALS: BP 121/75
[2016-04-08] MEDS: IV 1/2 NORMAL SALINE 1,000 ML IV SCH (05:25)
[2016-04-08] MEDS: BUPIVACAINE MPF 0.25% 20 ML, EPINEPHRINE 0.5 MG in TOTAL VOLUME SYRINGE 21.5 ML INT ART SCH (05:48)
[2016-04-08] MEDS ORDERED: MAGNESIUM HYDROXIDE 2,400 MG/30 ML ORAL.SUSP. PO PRN (06:00)
[2016-04-08 06:16] LABS: CALCIUM 8.8 mg/dL (8.5-10.1); CREATININE 0.7 mg/dL (0.6-1.0); POTASSIUM 4.3 mmol/L (3.5-5.1)
[2016-04-08 06:17] LABS: BASO % 0 % (0-3); EOS % 0 % (0-3); HEMATOCRIT 37.6 % (36.0-47.0); HEMOGLOBIN 12.2 g/dL (12.0-15.5); LYMPH # 1.5 x10^3/uL (1.0-4.8); LYMPH % 9 % (24-48); MEAN CORPUSCULAR HEMOGLOBIN 30 pg (25-35); MEAN CORPUSCULAR HGB CONC 33 g/dL (31-37); MEAN CORPUSCULAR VOLUME 92 fL (79-100); MONO % 8 % (0-9); NEUT % 83 % (31-73); PLATELET COUNT 181 x10^3/uL (140-400); RED CELL DISTRIBUTION WIDTH 13.7 % (11.5-14.5); WHITE BLOOD COUNT 17.5 x10^3/uL (4.0-11.0)
[2016-04-08 07:00] VITALS: BP 111/72
[2016-04-08] MEDS: IV RINGERS,LACTATED 1000ML 1,000 ML IV SCH (07:15)
--- NOTE | 2016-04-08 08:56 | PDOC ---
PROGRESS NOTES Chief Complaint Chief Complaint R hip fx s/p fall ASSESSMENT AND PLAN: 1. R hip fx: ORIF on 04/[address] Macario. recovering appropriately. 2. Pain control: adequate. IV and PO narcotics PRN. transition to PO only. 3. Prophylaxis: lovenox 4. Dispo: to Rehab on Mon Vitals Vitals Vital Signs Date Time Temp Pulse Resp B/P Pulse Ox O2 Delivery O2 Flow Rate FiO2 04/08/16 03:00 98.2 70 18 121/75 95 Room Air 98.2 04/07/16 14:15 2 Physical Exam General: Alert, Cooperative Heart: Regular rate Lungs: Clear Abdomen: Normal bowel sounds, No tenderness Extremities: Other (R lat hip covered w/gauze) Skin: No rashes, Other Labs LABS Laboratory Tests Test 04/08/16 05:30 White Blood Count 17.5x10^3/uL (4.0-11.0) Red Blood Count 4.10x10^6/uL (3.50-5.40) Hemoglobin 12.2g/dL (12.0-15.5) Hematocrit 37.6% (36.0-47.0) Mean Corpuscular Volume 92fL (79-100) Mean Corpuscular Hemoglobin 30pg (25-35) Mean Corpuscular Hemoglobin Concent 33g/dL (31-37) Red Cell Distribution Width 13.7% (11.5-14.5) Platelet Count 181x10^3/uL (140-400) Neutrophils (%) (Auto) 83% (31-73) Lymphocytes (%) (Auto) 9% (24-48) Monocytes (%) (Auto) 8% (0-9) Eosinophils (%) (Auto) 0% (0-3) Basophils (%) (Auto) 0% (0-3) Neutrophils # (Auto) 14.5x10^3uL (1.8-7.7) Lymphocytes # (Auto) 1.5x10^3/uL (1.0-4.8) Monocytes # (Auto) 1.4x10^3/uL (0.0-1.1) Eosinophils # (Auto) 0.0x10^3/uL (0.0-0.7) Basophils # (Auto) 0.0x10^3/uL (0.0-0.2) Sodium Level 133mmol/L (136-145) Potassium Level 4.3mmol/L (3.5-5.1) Chloride Level 98mmol/L (98-107) Carbon Dioxide Level 26mmol/L (21-32) Anion Gap 9 (6-14) Blood Urea Nitrogen 12mg/dL (7-20) Creatinine 0.7mg/dL (0.6-1.0) Estimated GFR (Cockcroft-Gault) 82.0 Glucose Level 111mg/dL (70-99) Calcium Level 8.8mg/dL (8.5-10.1) Review of Systems Review of Systems sitting in chair, pain fairly well controlled. no other c/o Comment Labs Laboratory Tests Test 04/06/16 18:50 04/07/16 05:40 04/07/16 07:20 04/08/16 05:30 White Blood Count 13.5x10^3/uL (4.0-11.0) 14.2x10^3/uL (4.0-11.0) 17.5x10^3/uL (4.0-11.0) Red Blood Count 4.40x10^6/uL (3.50-5.40) 4.50x10^6/uL (3.50-5.40) 4.10x10^6/uL (3.50-5.40) Hemoglobin 13.1g/dL (12.0-15.5) 13.4g/dL (12.0-15.5) 12.2g/dL (12.0-15.5) Hematocrit 40.9% (36.0-47.0) 41.0% (36.0-47.0) 37.6% (36.0-47.0) Mean Corpuscular Volume 93fL (79-100) 91fL (79-100) 92fL (79-100) Mean Corpuscular Hemoglobin 30pg (25-35) 30pg (25-35) 30pg (25-35) Mean Corpuscular Hemoglobin Concent 32g/dL (31-37) 33g/dL (31-37) 33g/dL (31-37) Red Cell Distribution Width 14.2% (11.5-14.5) 14.0% (11.5-14.5) 13.7% (11.5-14.5) Platelet Count 171x10^3/uL (140-400) 187x10^3/uL (140-400) 181x10^3/uL (140-400) Neutrophils (%) (Auto) 88% (31-73) 83% (31-73) 83% (31-73) Lymphocytes (%) (Auto) 7% (24-48) 11% (24-48) 9% (24-48) Monocytes (%) (Auto) 4% (0-9) 6% (0-9) 8% (0-9) Eosinophils (%) (Auto) 0% (0-3) 0% (0-3) 0% (0-3) Basophils (%) (Auto) 1% (0-3) 0% (0-3) 0% (0-3) Neutrophils # (Auto) 11.9x10^3uL (1.8-7.7) 11.7x10^3uL (1.8-7.7) 14.5x10^3uL (1.8-7.7) Lymphocytes # (Auto) 1.0x10^3/uL (1.0-4.8) 1.6x10^3/uL (1.0-4.8) 1.5x10^3/uL (1.0-4.8) Monocytes # (Auto) 0.5x10^3/uL (0.0-1.1) 0.9x10^3/uL (0.0-1.1) 1.4x10^3/uL (0.0-1.1) Eosinophils # (Auto) 0.0x10^3/uL (0.0-0.7) 0.0x10^3/uL (0.0-0.7) 0.0x10^3/uL (0.0-0.7) Basophils # (Auto) 0.1x10^3/uL (0.0-0.2) 0.0x10^3/uL (0.0-0.2) 0.0x10^3/uL (0.0-0.2) Segmented Neutrophils % 89% (35-66) Lymphocytes % 6% (24-48) Monocytes % 5% (0-10) Platelet Estimate Adequate (ADEQUATE) Prothrombin Time 13.0SEC (11.7-14.0) Prothromb Time International Ratio 1.0 (0.8-1.1) Sodium Level 137mmol/L (136-145) 133mmol/L (136-145) 133mmol/L (136-145) Potassium Level 3.3mmol/L (3.5-5.1) 3.6mmol/L (3.5-5.1) 4.3mmol/L (3.5-5.1) Chloride Level 101mmol/L (98-107) 96mmol/L (98-107) 98mmol/L (98-107) Carbon Dioxide Level 25mmol/L (21-32) 26mmol/L (21-32) 26mmol/L (21-32) Anion Gap 11 (6-14) 11 (6-14) 9 (6-14) Blood Urea Nitrogen 11mg/dL (7-20) 10mg/dL (7-20) 12mg/dL (7-20) Creatinine 0.7mg/dL (0.6-1.0) 0.7mg/dL (0.6-1.0) 0.7mg/dL (0.6-1.0) Estimated GFR (Cockcroft-Gault) 82.0 82.0 82.0 BUN/Creatinine Ratio 16 (6-20) Glucose Level 120mg/dL (70-99) 122mg/dL (70-99) 111mg/dL (70-99) Calcium Level 9.1mg/dL (8.5-10.1) 9.0mg/dL (8.5-10.1) 8.8mg/dL (8.5-10.1) Total Bilirubin 0.8mg/dL (0.2-1.0) Aspartate Amino Transf (AST/SGOT) 21U/L (15-37) Alanine Aminotransferase (ALT/SGPT) 22U/L (14-59) Alkaline Phosphatase 68U/L (46-116) Total Protein 7.4g/dL (6.4-8.2) Albumin 3.9g/dL (3.4-5.0) Albumin/Globulin Ratio 1.1 (1.0-1.7) Nasal Screen MRSA (PCR) Negative (Negative) Laboratory Tests Test 04/08/16 05:30 White Blood Count 17.5x10^3/uL (4.0-11.0) Red Blood Count 4.10x10^6/uL (3.50-5.40) Hemoglobin 12.2g/dL (12.0-15.5) Hematocrit 37.6% (36.0-47.0) Mean Corpuscular Volume 92fL (79-100) Mean Corpuscular Hemoglobin 30pg (25-35) Mean Corpuscular Hemoglobin Concent 33g/dL (31-37) Red Cell Distribution Width 13.7% (11.5-14.5) Platelet Count 181x10^3/uL (140-400) Neutrophils (%) (Auto) 83% (31-73) Lymphocytes (%) (Auto) 9% (24-48) Monocytes (%) (Auto) 8% (0-9) Eosinophils (%) (Auto) 0% (0-3) Basophils (%) (Auto) 0% (0-3) Neutrophils # (Auto) 14.5x10^3uL (1.8-7.7) Lymphocytes # (Auto) 1.5x10^3/uL (1.0-4.8) Monocytes # (Auto) 1.4x10^3/uL (0.0-1.1) Eosinophils # (Auto) 0.0x10^3/uL (0.0-0.7) Basophils # (Auto) 0.0x10^3/uL (0.0-0.2) Sodium Level 133mmol/L (136-145) Potassium Level 4.3mmol/L (3.5-5.1) Chloride Level 98mmol/L (98-107) Carbon Dioxide Level 26mmol/L (21-32) Anion Gap 9 (6-14) Blood Urea Nitrogen 12mg/dL (7-20) Creatinine 0.7mg/dL (0.6-1.0) Estimated GFR (Cockcroft-Gault) 82.0 Glucose Level 111mg/dL (70-99) Calcium Level 8.8mg/dL (8.5-10.1) Medications Current Medications Fentanyl Citrate (Fentanyl 2ml Vial) 100 mcg STK-MED ONCE .ROUTE ; Start at 13:51; Stop 04/06/16 at 13:52; Status DC Fentanyl Citrate (Fentanyl 2ml Vial) 25 mcg 1X ONCE IV Last administered on 14:12; Start 04/06/16 at 14:00; Stop 04/06/16 at 14:01; Status DC Fentanyl Citrate (Fentanyl 2ml Vial) 25 mcg 1X ONCE IV Last administered on 14:55; Start 04/06/16 at 14:45; Stop 04/06/16 at 14:46; Status DC Fentanyl Citrate (Fentanyl 2ml Vial) 50 mcg 1X ONCE IV Last administered on 17:13; Start 04/06/16 at 16:00; Stop 04/06/16 at 16:01; Status DC Ondansetron HCl (Zofran) 4 mg PRN Q8HRS PRN IV NAUSEA/VOMITING Last administered on 04/06/16 17:13; Start 04/06/16 at 16:00; Stop 04/07/16 at 15:59 ; Status DC Fentanyl Citrate (Fentanyl 2ml Vial) 50 mcg PRN Q2HR PRN IV PAIN; Start at 16:00; Stop 04/07/16 at 00:00; Status DC Ketorolac Tromethamine (Toradol) 15 mg 1X ONCE IV ; Start 04/06/16 at 18:15; Stop 04/06/16 at 18:16; Status UNV Oxycodone/ Acetaminophen (Percocet 5/325) 1 tab PRN Q4HRS PRN PO PAIN; Start at 18:15 Potassium Chloride (Klor-Con) 20 meq 1X ONCE PO Last administered on 21:19; Start 04/06/16 at 20:15; Stop 04/06/16 at 20:16; Status DC Ketorolac Tromethamine (Toradol) 15 mg PRN Q6HRS PRN IV PAIN; Start 04/06/16 at 20:15; Stop 04/11/16 at 20:14; Status UNV Acetaminophen (Tylenol) 650 mg PRN Q6HRS PRN PO MILD PAIN / TEMP; Start at 20:15 Propranolol HCl (Inderal) 10 mg BID PO Last administered on 04/07/16 21:17; Start 04/06/16 at 21:00 Tramadol HCl (Ultram) 50 mg PRN Q6HRS PRN PO PAIN Last administered on 00:44; Start 04/06/16 at 20:15 Fentanyl Citrate (Fentanyl 2ml Vial) 25 mcg PRN Q2HR PRN IV SEVERE PAIN Last administered on 04/07/16 01:47; Start 04/06/16 at 22:00 Zolpidem Tartrate (Ambien) 5 mg PRN QHS PRN PO INSOMNIA, MAY REPEAT IN 1HR Last administered on 04/06/16 23:00; Start 04/06/16 at 22:00 Tobramycin Sulfate 1.2 gm STK-MED ONCE .ROUTE Last administered on 04/07/16 13 :00; Start 04/07/16 at 08:13; Stop 04/07/16 at 08:14; Status DC Vancomycin HCl 1 gm STK-MED ONCE .ROUTE Last administered on 04/07/16 13:00; Start 04/07/16 at 08:13; Stop 04/07/16 at 08:14; Status DC Fentanyl Citrate (Fentanyl 2ml Vial) 50 mcg PRN Q5MIN PRN IV Acute Pain; Start 04/07/16 at 09:00; Stop 04/07/16 at 18:00; Status DC Morphine Sulfate 4 mg PRN Q10MIN PRN IV Moderate Pain; Start 04/07/16 at 09:00 ; Stop 04/07/16 at 18:00; Status DC Hydromorphone HCl (Dilaudid) 0.4 mg PRN Q10MIN PRN IV Moderate to severe pain; Start 04/07/16 at 09:00; Stop 04/07/16 at 18:00; Status DC Meperidine HCl (Demerol) 12.5 mg PRN Q5MIN PRN IV SHIVERING; Start 04/07/16 at 09:00; Stop 04/08/16 at 08:59 Prochlorperazine Edisylate (Compazine) 5 mg PRN Q6HRS PRN IV Nausea/Vomiting, 1st Choice; Start 04/07/16 at 09:00; Stop 04/07/16 at 18:00; Status DC Diphenhydramine HCl 12.5 mg 12.5 mg PRN Q2HR PRN IV ITCHING; Start 04/07/16 at 09:00; Stop 04/07/16 at 18:00; Status DC Cefazolin Sodium 50 ml @ 100 mls/hr 1X PREOP PRN IV see comments Last administered on 04/07/16 12:40; Start 04/07/16 at 09:45 Lactated Ringer's 1,000 ml @ 100 mls/hr Q10H IV Last administered on 11:10; Start 04/07/16 at 11:15 Tranexamic Acid 1000 mg/Sodium Chloride 60 ml @ 60 mls/hr 1X PERIOP ONCE INJ Last administered on 04/07/16 12:50; Start 04/07/16 at 12:00; Stop 04/07/16 at 13:10; Status DC Tranexamic Acid 1000 mg/Sodium Chloride 60 ml @ 60 mls/hr 1X PERIOP ONCE INJ Last administered on 04/07/16 13:39; Start 04/07/16 at 13:00; Stop 04/07/16 at 14:02; Status DC Morphine Sulfate 5 mg/Ropivacaine 60 ml/Epinephrine HCl 0.5 mg/Sodium Chloride 99.5 ml @ 99.5 mls/hr 1X PERIOP ONCE INT ART Last administered on 04/07/16 13:00; Start 04/07/16 at 12:00; Stop 04/07/16 at 13:10; Status DC Propofol (Diprivan) 100 ml @ As Directed STK-MED ONCE IV ; Start 04/07/16 at 11 :30; Stop 04/07/16 at 11:31; Status DC Ketamine HCl 500 mg STK-MED ONCE .ROUTE ; Start 04/07/16 at 11:32; Stop at 11:33; Status DC Dexamethasone Sodium Phosphate (Decadron) 20 mg STK-MED ONCE .ROUTE ; Start at 11:36; Stop 04/07/16 at 11:37; Status DC Ondansetron HCl (Zofran) 4 mg STK-MED ONCE .ROUTE ; Start 04/07/16 at 11:36; Stop 04/07/16 at 11:37; Status DC Famotidine (Pepcid) 20 mg STK-MED ONCE .ROUTE ; Start 04/07/16 at 11:36; Stop at 11:37; Status DC Fentanyl Citrate (Fentanyl 2ml Vial) 100 mcg STK-MED ONCE .ROUTE ; Start at 11:38; Stop 04/07/16 at 11:39; Status DC Midazolam HCl (Versed) 2 mg STK-MED ONCE .ROUTE ; Start 04/07/16 at 12:12; Stop 04/07/16 at 12:13; Status DC Epinephrine HCl (Adrenalin) 30 mg STK-MED ONCE .ROUTE Last administered on 04/07t 13:00; Start 04/07/16 at 12:55; Stop 04/07/16 at 12:56; Status DC Phenylephrine HCl 1 mg STK-MED ONCE IV ; Start 04/07/16 at 12:59; Stop 04/07/16 at 13:00; Status DC Ephedrine Sulfate 50 mg 50 mg STK-MED ONCE IV ; Start 04/07/16 at 13:00; Stop at 13:01; Status DC Acetaminophen (Ofirmev) 100 ml @ As Directed STK-MED ONCE IV ; Start 04/07/16 at 13:42; Stop 04/07/16 at 13:43; Status DC Tramadol HCl (Ultram) 50 mg PRN QID PRN PO PAIN; Start 04/07/16 at 14:00 Oxycodone HCl (Roxicodone) 5 mg PRN Q3HRS PRN PO PAIN; Start 04/07/16 at 14:00 Morphine Sulfate 2 mg PRN Q1HR PRN IV PAIN; Start 04/07/16 at 14:00 Fentanyl Citrate (Fentanyl 2ml Vial) 25 mcg PRN Q1HR PRN IV PAIN; Start at 14:00 Acetaminophen (Tylenol) 500 mg TID PO Last administered on 04/07/16t 21:17; Start 04/07/16 at 14:00 Multivitamins/ Calcium (Thera M Plus) 1 tab DAILY PO ; Start 04/08/16 at 09:00 Senna/Docusate Sodium (Senna Plus) 1 tab DAILY PO ; Start 04/08/16 at 09:00 Polyethylene Glycol (miraLAX PACKET) 17 gm PRN DAILY PRN PO CONSTIPATION; Start 04/07/16 at 14:00 Vitamin D 1000 unit 1,000 unit DAILY PO ; Start 04/08/16 at 09:00 Sodium Chloride (Iv Sodium Chloride 0.45%) 1,000 ml @ 75 mls/hr [id number] IV Last administered on 04/08/16 05:25; Start 04/07/16 at 13:49 Ondansetron HCl (Zofran) 4 mg PRN Q4HRS PRN IV NAUSEA/VOMITING; Start 04/07/16 at 14:00 Magnesium Hydroxide (Milk Of Magnesia) 2,400 mg 1X PRN PRN PO CONSTIPATION; Start 04/08/16 at 06:00; Stop 04/09/16 at 05:59 Bisacodyl 10 mg 10 mg 1X PRN PRN [place] CONSTIPATION; Start 04/08/16 at 16:00; Stop 04/09/16 at 15:59 Bupivacaine HCl/ Epinephrine HCl/ Miscellaneous (Sensorcaine Mpf 0.25%/Adrenalin ) 42.0 ml @ 258 mls/hr Q12H INT ART Last administered on 04/08/16 05:48; Start 04/07/16 at 18:00; Stop 04/08/16 at 06:10; Status DC Acetaminophen/ Hydrocodone Bitart (Lortab 7.5/325) 1 tab PRN Q4HRS PRN PO PAIN ; Start 04/07/16 at 14:00 Morphine Sulfate 4 mg PRN Q2HR PRN IV PAIN; Start 04/07/16 at 14:00 Acetaminophen/ Hydrocodone Bitart (Lortab 7.5/325) 2 tab PRN Q4HRS PRN PO PAIN ; Start 04/07/16 at 14:00 Dextrose 12.5 gm 12.5 gm PRN Q15MIN PRN IV SEE COMMENTS; Start 04/07/16 at 14: 00 Cefazolin Sodium/ Sodium Chloride (Ancef/Iv Sodium Chloride 0.9% 50ml) 50 ml @ 100 mls/hr Q6H IV Last administered on 04/08/16 05:47; Start 04/07/16 at 18:00 ; Stop 04/08/16 at 06:29; Status DC Propranolol HCl (Inderal) 10 mg BID PO ; Start 04/07/16 at 21:00; Status Cancel Enoxaparin Sodium (Lovenox 40mg Syringe) 40 mg Q24H SQ ; Start 04/08/16 at 14:00 Active Scripts Active Reported Propranolol Hcl 10 Mg Tablet 10 Mg PO BID Vitals/I & O Vital Sign - Last 24 Hours 04/07/16 04/07/16 04/07/16 04/07/16 09:16 10:39 14:00 14:00 Temp 99.6 97.9 99.6 97.9 Pulse 81 82 81 Resp 20 15 B/P 150/81 148/80 110/67 Pulse Ox 95 100 O2 Delivery Room Air Nasal Cannula Nasal Cannula O2 Flow Rate 2 2 04/07/16 04/07/16 04/07/16 04/07/16 14:15 14:30 14:45 14:45 Temp 97.9 97.9 Pulse 78 68 68 Resp 15 20 20 B/P 104/69 111/63 113/59 Pulse Ox 97 93 93 O2 Delivery Nasal Cannula Room Air Room Air Room Air O2 Flow Rate 2 04/07/16 04/07/16 04/07/16 04/07/16 15:00 15:15 15:20 15:30 Temp 99.2 97.3 99.2 97.3 Pulse 66 79 85 66 Resp 20 20 16 20 B/P 102/65 117/55 138/80 120/78 Pulse Ox 93 97 96 96 O2 Delivery Room Air Room Air Room Air Room Air 04/07/16 04/07/16 04/07/16 04/07/16 15:35 15:45 15:50 16:00 Pulse 83 68 88 68 Resp 20 20 B/P 103/83 118/68 132/69 117/65 Pulse Ox 96 97 94 96 O2 Delivery Room Air Room Air Room Air Room Air 04/07/16 04/07/16 04/07/16 04/07/16 16:05 16:20 17:50 18:20 Pulse 78 69 68 68 B/P 128/80 124/75 120/74 123/70 Pulse Ox 92 92 90 90 O2 Delivery Room Air Room Air Room Air Room Air 04/07/16 04/07/16 04/07/16 04/07/16 18:50 20:00 20:26 21:17 Temp 98.2 98.2 Pulse 77 72 72 Resp 18 B/P 133/80 130/78 130/78 Pulse Ox 95 93 O2 Delivery Room Air Room Air Room Air 04/07/16 04/08/16 04/08/16 04/08/16 23:00 00:44 01:44 03:00 Temp 98.6 98.2 98.6 98.2 Pulse 86 70 Resp 18 16 14 18 B/P 113/68 121/75 Pulse Ox 94 95 O2 Delivery Room Air Room Air Room Air Room Air Intake and Output 04/07/16 04/07/16 04/08/16 15:00 23:00 07:00 Intake Total 1150 ml 2410 ml 1031 ml Output Total 600 ml 150 ml 2700 ml Balance 550 ml 2260 ml -1669 ml GIOVANNI MANCIA MD Apr 08, 2016 08:55
[2016-04-08] MEDS: CHOLECALCIFEROL (VITAMIN D3) 1,000 UNIT TABLET PO SCH (09:00)
[2016-04-08] MEDS: ACETAMINOPHEN 500 MG TABLET PO SCH ×3 (09:00→21:00)
[2016-04-08] MEDS: SENNOSIDES/DOCUSATE 8.6/50MG TABLET. PO SCH (09:17)
[2016-04-08] MEDS: MULTIVITAMIN with MINERAL TABLET. PO SCH (09:17)
[2016-04-08] MEDS: PROPRANOLOL 10 MG TABLET. PO SCH ×2 (09:17→21:20)
[2016-04-08 11:00] VITALS: BP 115/72
[2016-04-08 15:00] VITALS: BP 124/66
[2016-04-08] MEDS ORDERED: BISACODYL 10 MG SUPP.RECT PR PRN (16:00)
[2016-04-08] MEDS: ENOXAPARIN 40 MG/0.4 ML DISP.SYRIN. SQ SCH (16:54)
--- NOTE | 2016-04-08 18:18 | PDOC ---
PROGRESS NOTES Subjective Subjective Expected postoperative pain, no other complaints Objective Vital Signs Vital Signs Date Time Temp Pulse Resp B/P Pulse Ox O2 Delivery O2 Flow Rate FiO2 04/08/16 16:51 16 Room Air 04/08/16 15:00 98.1 70 124/66 95 98.1 04/08/16 08:00 2.0 Physical Exam Dressing dry. Foot is neurovascularly intact. No sign of infection or compartment syndrome. No evidence of DVT. Labs Laboratory Tests Test 04/06/16 18:50 04/07/16 05:40 04/07/16 07:20 04/08/16 05:30 White Blood Count 13.5x10^3/uL (4.0-11.0) 14.2x10^3/uL (4.0-11.0) 17.5x10^3/uL (4.0-11.0) Red Blood Count 4.40x10^6/uL (3.50-5.40) 4.50x10^6/uL (3.50-5.40) 4.10x10^6/uL (3.50-5.40) Hemoglobin 13.1g/dL (12.0-15.5) 13.4g/dL (12.0-15.5) 12.2g/dL (12.0-15.5) Hematocrit 40.9% (36.0-47.0) 41.0% (36.0-47.0) 37.6% (36.0-47.0) Mean Corpuscular Volume 93fL (79-100) 91fL (79-100) 92fL (79-100) Mean Corpuscular Hemoglobin 30pg (25-35) 30pg (25-35) 30pg (25-35) Mean Corpuscular Hemoglobin Concent 32g/dL (31-37) 33g/dL (31-37) 33g/dL (31-37) Red Cell Distribution Width 14.2% (11.5-14.5) 14.0% (11.5-14.5) 13.7% (11.5-14.5) Platelet Count 171x10^3/uL (140-400) 187x10^3/uL (140-400) 181x10^3/uL (140-400) Neutrophils (%) (Auto) 88% (31-73) 83% (31-73) 83% (31-73) Lymphocytes (%) (Auto) 7% (24-48) 11% (24-48) 9% (24-48) Monocytes (%) (Auto) 4% (0-9) 6% (0-9) 8% (0-9) Eosinophils (%) (Auto) 0% (0-3) 0% (0-3) 0% (0-3) Basophils (%) (Auto) 1% (0-3) 0% (0-3) 0% (0-3) Neutrophils # (Auto) 11.9x10^3uL (1.8-7.7) 11.7x10^3uL (1.8-7.7) 14.5x10^3uL (1.8-7.7) Lymphocytes # (Auto) 1.0x10^3/uL (1.0-4.8) 1.6x10^3/uL (1.0-4.8) 1.5x10^3/uL (1.0-4.8) Monocytes # (Auto) 0.5x10^3/uL (0.0-1.1) 0.9x10^3/uL (0.0-1.1) 1.4x10^3/uL (0.0-1.1) Eosinophils # (Auto) 0.0x10^3/uL (0.0-0.7) 0.0x10^3/uL (0.0-0.7) 0.0x10^3/uL (0.0-0.7) Basophils # (Auto) 0.1x10^3/uL (0.0-0.2) 0.0x10^3/uL (0.0-0.2) 0.0x10^3/uL (0.0-0.2) Segmented Neutrophils % 89% (35-66) Lymphocytes % 6% (24-48) Monocytes % 5% (0-10) Platelet Estimate Adequate (ADEQUATE) Prothrombin Time 13.0SEC (11.7-14.0) Prothromb Time International Ratio 1.0 (0.8-1.1) Sodium Level 137mmol/L (136-145) 133mmol/L (136-145) 133mmol/L (136-145) Potassium Level 3.3mmol/L (3.5-5.1) 3.6mmol/L (3.5-5.1) 4.3mmol/L (3.5-5.1) Chloride Level 101mmol/L (98-107) 96mmol/L (98-107) 98mmol/L (98-107) Carbon Dioxide Level 25mmol/L (21-32) 26mmol/L (21-32) 26mmol/L (21-32) Anion Gap 11 (6-14) 11 (6-14) 9 (6-14) Blood Urea Nitrogen 11mg/dL (7-20) 10mg/dL (7-20) 12mg/dL (7-20) Creatinine 0.7mg/dL (0.6-1.0) 0.7mg/dL (0.6-1.0) 0.7mg/dL (0.6-1.0) Estimated GFR (Cockcroft-Gault) 82.0 82.0 82.0 BUN/Creatinine Ratio 16 (6-20) Glucose Level 120mg/dL (70-99) 122mg/dL (70-99) 111mg/dL (70-99) Calcium Level 9.1mg/dL (8.5-10.1) 9.0mg/dL (8.5-10.1) 8.8mg/dL (8.5-10.1) Total Bilirubin 0.8mg/dL (0.2-1.0) Aspartate Amino Transf (AST/SGOT) 21U/L (15-37) Alanine Aminotransferase (ALT/SGPT) 22U/L (14-59) Alkaline Phosphatase 68U/L (46-116) Total Protein 7.4g/dL (6.4-8.2) Albumin 3.9g/dL (3.4-5.0) Albumin/Globulin Ratio 1.1 (1.0-1.7) Nasal Screen MRSA (PCR) Negative (Negative) Laboratory Tests Test 04/08/16 05:30 White Blood Count 17.5x10^3/uL (4.0-11.0) Red Blood Count 4.10x10^6/uL (3.50-5.40) Hemoglobin 12.2g/dL (12.0-15.5) Hematocrit 37.6% (36.0-47.0) Mean Corpuscular Volume 92fL (79-100) Mean Corpuscular Hemoglobin 30pg (25-35) Mean Corpuscular Hemoglobin Concent 33g/dL (31-37) Red Cell Distribution Width 13.7% (11.5-14.5) Platelet Count 181x10^3/uL (140-400) Neutrophils (%) (Auto) 83% (31-73) Lymphocytes (%) (Auto) 9% (24-48) Monocytes (%) (Auto) 8% (0-9) Eosinophils (%) (Auto) 0% (0-3) Basophils (%) (Auto) 0% (0-3) Neutrophils # (Auto) 14.5x10^3uL (1.8-7.7) Lymphocytes # (Auto) 1.5x10^3/uL (1.0-4.8) Monocytes # (Auto) 1.4x10^3/uL (0.0-1.1) Eosinophils # (Auto) 0.0x10^3/uL (0.0-0.7) Basophils # (Auto) 0.0x10^3/uL (0.0-0.2) Sodium Level 133mmol/L (136-145) Potassium Level 4.3mmol/L (3.5-5.1) Chloride Level 98mmol/L (98-107) Carbon Dioxide Level 26mmol/L (21-32) Anion Gap 9 (6-14) Blood Urea Nitrogen 12mg/dL (7-20) Creatinine 0.7mg/dL (0.6-1.0) Estimated GFR (Cockcroft-Gault) 82.0 Glucose Level 111mg/dL (70-99) Calcium Level 8.8mg/dL (8.5-10.1) Imaging Postoperative x-rays were reviewed by me and shows satisfactory bipolar arthroplasty without apparent complications. Assessment Assessment Postoperative day 1 after right hip bipolar arthroplasty for hip fracture Problems: Plan Plan of Care Continue plan of care. DVT prophylaxis. Physical therapy. Discharge planning. Weightbearing as tolerated. Office follow-up with me in 10-14 days. CHRISTOPHER YDER MD Apr 08, 2016 18:18
[2016-04-08 19:51] VITALS: BP 124/75
[2016-04-08 23:11] VITALS: BP 102/68
[2016-04-09] MEDS: ACETAMINOPHEN 325 MG TABLET. PO PRN (02:57)
[2016-04-09 03:13] VITALS: BP 119/72
[2016-04-09 06:49] LABS: BASO % 0 % (0-3); EOS % 1 % (0-3); HEMATOCRIT 37.7 % (36.0-47.0); HEMOGLOBIN 12.4 g/dL (12.0-15.5); LYMPH # 1.9 x10^3/uL (1.0-4.8); LYMPH % 17 % (24-48); MEAN CORPUSCULAR HEMOGLOBIN 30 pg (25-35); MEAN CORPUSCULAR HGB CONC 33 g/dL (31-37); MEAN CORPUSCULAR VOLUME 92 fL (79-100); MONO % 11 % (0-9); NEUT % 71 % (31-73); PLATELET COUNT 159 x10^3/uL (140-400); RED BLOOD COUNT 4.11 x10^6/uL (3.50-5.40); RED CELL DISTRIBUTION WIDTH 13.8 % (11.5-14.5); WHITE BLOOD COUNT 11.3 x10^3/uL (4.0-11.0)
[2016-04-09 07:00] VITALS: BP 96/49
[2016-04-09 07:08] LABS: CALCIUM 8.5 mg/dL (8.5-10.1); CREATININE 0.7 mg/dL (0.6-1.0); POTASSIUM 3.9 mmol/L (3.5-5.1)
[2016-04-09] MEDS: CHOLECALCIFEROL (VITAMIN D3) 1,000 UNIT TABLET PO SCH (08:32)
[2016-04-09] MEDS: MULTIVITAMIN with MINERAL TABLET. PO SCH (08:32)
[2016-04-09] MEDS: PROPRANOLOL 10 MG TABLET. PO SCH ×2 (09:00→21:02)
[2016-04-09] MEDS: SENNOSIDES/DOCUSATE 8.6/50MG TABLET. PO SCH (09:00)
[2016-04-09] MEDS: ACETAMINOPHEN 500 MG TABLET PO SCH ×3 (09:00→21:00)
[2016-04-09 11:00] VITALS: BP 116/68
--- NOTE | 2016-04-09 14:26 | PDOC ---
PROGRESS NOTES Chief Complaint Chief Complaint R hip fx s/p fall ASSESSMENT AND PLAN: 1. R hip fx: ORIF on 04/[address] Macario. recovering appropriately. 2. Pain control: adequate. IV and PO narcotics PRN. transition to PO only. 3. Prophylaxis: lovenox 4. Dispo: to Rehab on Mon waiting for SW to eval. 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 some pain Vitals Vitals Vital Signs Date Time Temp Pulse Resp B/P Pulse Ox O2 Delivery O2 Flow Rate FiO2 04/09/16 11:00 98.5 73 20 116/68 94 Room Air 98.5 04/08/16 08:00 2.0 Physical Exam General: Alert, Cooperative Heart: Regular rate Lungs: Clear Abdomen: Normal bowel sounds, No tenderness Extremities: No clubbing, Other (R lat hip covered w/gauze) Skin: No rashes, Other Labs LABS Laboratory Tests Test 04/09/16 06:10 White Blood Count 11.3x10^3/uL (4.0-11.0) Red Blood Count 4.11x10^6/uL (3.50-5.40) Hemoglobin 12.4g/dL (12.0-15.5) Hematocrit 37.7% (36.0-47.0) Mean Corpuscular Volume 92fL (79-100) Mean Corpuscular Hemoglobin 30pg (25-35) Mean Corpuscular Hemoglobin Concent 33g/dL (31-37) Red Cell Distribution Width 13.8% (11.5-14.5) Platelet Count 159x10^3/uL (140-400) Neutrophils (%) (Auto) 71% (31-73) Lymphocytes (%) (Auto) 17% (24-48) Monocytes (%) (Auto) 11% (0-9) Eosinophils (%) (Auto) 1% (0-3) Basophils (%) (Auto) 0% (0-3) Neutrophils # (Auto) 7.9x10^3uL (1.8-7.7) Lymphocytes # (Auto) 1.9x10^3/uL (1.0-4.8) Monocytes # (Auto) 1.3x10^3/uL (0.0-1.1) Eosinophils # (Auto) 0.1x10^3/uL (0.0-0.7) Basophils # (Auto) 0.0x10^3/uL (0.0-0.2) Sodium Level 138mmol/L (136-145) Potassium Level 3.9mmol/L (3.5-5.1) Chloride Level 102mmol/L (98-107) Carbon Dioxide Level 28mmol/L (21-32) Anion Gap 8 (6-14) Blood Urea Nitrogen 13mg/dL (7-20) Creatinine 0.7mg/dL (0.6-1.0) Estimated GFR (Cockcroft-Gault) 82.0 Glucose Level 93mg/dL (70-99) Calcium Level 8.5mg/dL (8.5-10.1) Review of Systems Review of Systems no fever, chills, sob or chest pain Assessment and Plan Assessmemt and Plan Problems Medical Problems: (1) Closed right hip fracture Status: Acute Problems: Comment Review of Relevant I have reviewed the following items cherri (where applicable) has been applied. Labs Laboratory Tests Test 04/08/16 05:30 04/09/16 06:10 White Blood Count 17.5x10^3/uL (4.0-11.0) 11.3x10^3/uL (4.0-11.0) Red Blood Count 4.10x10^6/uL (3.50-5.40) 4.11x10^6/uL (3.50-5.40) Hemoglobin 12.2g/dL (12.0-15.5) 12.4g/dL (12.0-15.5) Hematocrit 37.6% (36.0-47.0) 37.7% (36.0-47.0) Mean Corpuscular Volume 92fL (79-100) 92fL (79-100) Mean Corpuscular Hemoglobin 30pg (25-35) 30pg (25-35) Mean Corpuscular Hemoglobin Concent 33g/dL (31-37) 33g/dL (31-37) Red Cell Distribution Width 13.7% (11.5-14.5) 13.8% (11.5-14.5) Platelet Count 181x10^3/uL (140-400) 159x10^3/uL (140-400) Neutrophils (%) (Auto) 83% (31-73) 71% (31-73) Lymphocytes (%) (Auto) 9% (24-48) 17% (24-48) Monocytes (%) (Auto) 8% (0-9) 11% (0-9) Eosinophils (%) (Auto) 0% (0-3) 1% (0-3) Basophils (%) (Auto) 0% (0-3) 0% (0-3) Neutrophils # (Auto) 14.5x10^3uL (1.8-7.7) 7.9x10^3uL (1.8-7.7) Lymphocytes # (Auto) 1.5x10^3/uL (1.0-4.8) 1.9x10^3/uL (1.0-4.8) Monocytes # (Auto) 1.4x10^3/uL (0.0-1.1) 1.3x10^3/uL (0.0-1.1) Eosinophils # (Auto) 0.0x10^3/uL (0.0-0.7) 0.1x10^3/uL (0.0-0.7) Basophils # (Auto) 0.0x10^3/uL (0.0-0.2) 0.0x10^3/uL (0.0-0.2) Sodium Level 133mmol/L (136-145) 138mmol/L (136-145) Potassium Level 4.3mmol/L (3.5-5.1) 3.9mmol/L (3.5-5.1) Chloride Level 98mmol/L (98-107) 102mmol/L (98-107) Carbon Dioxide Level 26mmol/L (21-32) 28mmol/L (21-32) Anion Gap 9 (6-14) 8 (6-14) Blood Urea Nitrogen 12mg/dL (7-20) 13mg/dL (7-20) Creatinine 0.7mg/dL (0.6-1.0) 0.7mg/dL (0.6-1.0) Estimated GFR (Cockcroft-Gault) 82.0 82.0 Glucose Level 111mg/dL (70-99) 93mg/dL (70-99) Calcium Level 8.8mg/dL (8.5-10.1) 8.5mg/dL (8.5-10.1) Laboratory Tests Test 04/09/16 06:10 White Blood Count 11.3x10^3/uL (4.0-11.0) Red Blood Count 4.11x10^6/uL (3.50-5.40) Hemoglobin 12.4g/dL (12.0-15.5) Hematocrit 37.7% (36.0-47.0) Mean Corpuscular Volume 92fL (79-100) Mean Corpuscular Hemoglobin 30pg (25-35) Mean Corpuscular Hemoglobin Concent 33g/dL (31-37) Red Cell Distribution Width 13.8% (11.5-14.5) Platelet Count 159x10^3/uL (140-400) Neutrophils (%) (Auto) 71% (31-73) Lymphocytes (%) (Auto) 17% (24-48) Monocytes (%) (Auto) 11% (0-9) Eosinophils (%) (Auto) 1% (0-3) Basophils (%) (Auto) 0% (0-3) Neutrophils # (Auto) 7.9x10^3uL (1.8-7.7) Lymphocytes # (Auto) 1.9x10^3/uL (1.0-4.8) Monocytes # (Auto) 1.3x10^3/uL (0.0-1.1) Eosinophils # (Auto) 0.1x10^3/uL (0.0-0.7) Basophils # (Auto) 0.0x10^3/uL (0.0-0.2) Sodium Level 138mmol/L (136-145) Potassium Level 3.9mmol/L (3.5-5.1) Chloride Level 102mmol/L (98-107) Carbon Dioxide Level 28mmol/L (21-32) Anion Gap 8 (6-14) Blood Urea Nitrogen 13mg/dL (7-20) Creatinine 0.7mg/dL (0.6-1.0) Estimated GFR (Cockcroft-Gault) 82.0 Glucose Level 93mg/dL (70-99) Calcium Level 8.5mg/dL (8.5-10.1) Medications Current Medications Fentanyl Citrate (Fentanyl 2ml Vial) 100 mcg STK-MED ONCE .ROUTE ; Start at 13:51; Stop 04/06/16 at 13:52; Status DC Fentanyl Citrate (Fentanyl 2ml Vial) 25 mcg 1X ONCE IV Last administered on 14:12; Start 04/06/16 at 14:00; Stop 04/06/16 at 14:01; Status DC Fentanyl Citrate (Fentanyl 2ml Vial) 25 mcg 1X ONCE IV Last administered on 14:55; Start 04/06/16 at 14:45; Stop 04/06/16 at 14:46; Status DC Fentanyl Citrate (Fentanyl 2ml Vial) 50 mcg 1X ONCE IV Last administered on 17:13; Start 04/06/16 at 16:00; Stop 04/06/16 at 16:01; Status DC Ondansetron HCl (Zofran) 4 mg PRN Q8HRS PRN IV NAUSEA/VOMITING Last administered on 04/06/16 17:13; Start 04/06/16 at 16:00; Stop 04/07/16 at 15:59 ; Status DC Fentanyl Citrate (Fentanyl 2ml Vial) 50 mcg PRN Q2HR PRN IV PAIN; Start at 16:00; Stop 04/07/16 at 00:00; Status DC Ketorolac Tromethamine (Toradol) 15 mg 1X ONCE IV ; Start 04/06/16 at 18:15; Stop 04/06/16 at 18:16; Status UNV Oxycodone/ Acetaminophen (Percocet 5/325) 1 tab PRN Q4HRS PRN PO PAIN; Start at 18:15 Potassium Chloride (Klor-Con) 20 meq 1X ONCE PO Last administered on 21:19; Start 04/06/16 at 20:15; Stop 04/06/16 at 20:16; Status DC Ketorolac Tromethamine (Toradol) 15 mg PRN Q6HRS PRN IV PAIN; Start 04/06/16 at 20:15; Stop 04/11/16 at 20:14; Status UNV Acetaminophen (Tylenol) 650 mg PRN Q6HRS PRN PO MILD PAIN / TEMP Last administered on 04/09/16 02:57; Start 04/06/16 at 20:15 Propranolol HCl (Inderal) 10 mg BID PO Last administered on 04/08/16 21:20; Start 04/06/16 at 21:00 Tramadol HCl (Ultram) 50 mg PRN Q6HRS PRN PO PAIN Last administered on 00:44; Start 04/06/16 at 20:15; Stop 04/08/16 at 12:57; Status DC Fentanyl Citrate (Fentanyl 2ml Vial) 25 mcg PRN Q2HR PRN IV SEVERE PAIN Last administered on 04/07/16 01:47; Start 04/06/16 at 22:00; Stop 04/09/16 at 13:19 ; Status DC Zolpidem Tartrate (Ambien) 5 mg PRN QHS PRN PO INSOMNIA, MAY REPEAT IN 1HR Last administered on 04/06/16 23:00; Start 04/06/16 at 22:00 Tobramycin Sulfate 1.2 gm STK-MED ONCE .ROUTE Last administered on 04/07/16 13 :00; Start 04/07/16 at 08:13; Stop 04/07/16 at 08:14; Status DC Vancomycin HCl 1 gm STK-MED ONCE .ROUTE Last administered on 04/07/16 13:00; Start 04/07/16 at 08:13; Stop 04/07/16 at 08:14; Status DC Fentanyl Citrate (Fentanyl 2ml Vial) 50 mcg PRN Q5MIN PRN IV Acute Pain; Start 04/07/16 at 09:00; Stop 04/07/16 at 18:00; Status DC Morphine Sulfate 4 mg PRN Q10MIN PRN IV Moderate Pain; Start 04/07/16 at 09:00 ; Stop 04/07/16 at 18:00; Status DC Hydromorphone HCl (Dilaudid) 0.4 mg PRN Q10MIN PRN IV Moderate to severe pain; Start 04/07/16 at 09:00; Stop 04/07/16 at 18:00; Status DC Meperidine HCl (Demerol) 12.5 mg PRN Q5MIN PRN IV SHIVERING; Start 04/07/16 at 09:00; Stop 04/08/16 at 08:59; Status DC Prochlorperazine Edisylate (Compazine) 5 mg PRN Q6HRS PRN IV Nausea/Vomiting, 1st Choice; Start 04/07/16 at 09:00; Stop 04/07/16 at 18:00; Status DC Diphenhydramine HCl 12.5 mg 12.5 mg PRN Q2HR PRN IV ITCHING; Start 04/07/16 at 09:00; Stop 04/07/16 at 18:00; Status DC Cefazolin Sodium 50 ml @ 100 mls/hr 1X PREOP PRN IV see comments Last administered on 04/07/16 12:40; Start 04/07/16 at 09:45; Stop 04/09/16 at 13:03 ; Status DC Lactated Ringer's 1,000 ml @ 100 mls/hr Q10H IV Last administered on 11:10; Start 04/07/16 at 11:15; Stop 04/08/16 at 21:49; Status DC Tranexamic Acid 1000 mg/Sodium Chloride 60 ml @ 60 mls/hr 1X PERIOP ONCE INJ Last administered on 04/07/16 12:50; Start 04/07/16 at 12:00; Stop 04/07/16 at 13:10; Status DC Tranexamic Acid 1000 mg/Sodium Chloride 60 ml @ 60 mls/hr 1X PERIOP ONCE INJ Last administered on 04/07/16 13:39; Start 04/07/16 at 13:00; Stop 04/07/16 at 14:02; Status DC Morphine Sulfate 5 mg/Ropivacaine 60 ml/Epinephrine HCl 0.5 mg/Sodium Chloride 99.5 ml @ 99.5 mls/hr 1X PERIOP ONCE INT ART Last administered on 04/07/16 13:00; Start 04/07/16 at 12:00; Stop 04/07/16 at 13:10; Status DC Propofol (Diprivan) 100 ml @ As Directed STK-MED ONCE IV ; Start 04/07/16 at 11 :30; Stop 04/07/16 at 11:31; Status DC Ketamine HCl 500 mg STK-MED ONCE .ROUTE ; Start 04/07/16 at 11:32; Stop at 11:33; Status DC Dexamethasone Sodium Phosphate (Decadron) 20 mg STK-MED ONCE .ROUTE ; Start at 11:36; Stop 04/07/16 at 11:37; Status DC Ondansetron HCl (Zofran) 4 mg STK-MED ONCE .ROUTE ; Start 04/07/16 at 11:36; Stop 04/07/16 at 11:37; Status DC Famotidine (Pepcid) 20 mg STK-MED ONCE .ROUTE ; Start 04/07/16 at 11:36; Stop at 11:37; Status DC Fentanyl Citrate (Fentanyl 2ml Vial) 100 mcg STK-MED ONCE .ROUTE ; Start at 11:38; Stop 04/07/16 at 11:39; Status DC Midazolam HCl (Versed) 2 mg STK-MED ONCE .ROUTE ; Start 04/07/16 at 12:12; Stop 04/07/16 at 12:13; Status DC Epinephrine HCl (Adrenalin) 30 mg STK-MED ONCE .ROUTE Last administered on 04/07t 13:00; Start 04/07/16 at 12:55; Stop 04/07/16 at 12:56; Status DC Phenylephrine HCl 1 mg STK-MED ONCE IV ; Start 04/07/16 at 12:59; Stop 04/07/16 at 13:00; Status DC Ephedrine Sulfate 50 mg 50 mg STK-MED ONCE IV ; Start 04/07/16 at 13:00; Stop at 13:01; Status DC Acetaminophen (Ofirmev) 100 ml @ As Directed STK-MED ONCE IV ; Start 04/07/16 at 13:42; Stop 04/07/16 at 13:43; Status DC Tramadol HCl (Ultram) 50 mg PRN QID PRN PO PAIN Last administered on 04/08/16t 16:51; Start 04/07/16 at 14:00 Oxycodone HCl (Roxicodone) 5 mg PRN Q3HRS PRN PO PAIN; Start 04/07/16 at 14:00 Morphine Sulfate 2 mg PRN Q1HR PRN IV SEVERE PAIN; Start 04/07/16 at 14:00 Fentanyl Citrate (Fentanyl 2ml Vial) 25 mcg PRN Q1HR PRN IV PAIN; Start at 14:00 Acetaminophen (Tylenol) 500 mg TID PO Last administered on 04/07/16 21:17; Start 04/07/16 at 14:00 Multivitamins/ Calcium (Thera M Plus) 1 tab DAILY PO Last administered on 08:32; Start 04/08/16 at 09:00 Senna/Docusate Sodium (Senna Plus) 1 tab DAILY PO Last administered on 09:17; Start 04/08/16 at 09:00 Polyethylene Glycol (miraLAX PACKET) 17 gm PRN DAILY PRN PO CONSTIPATION; Start 04/07/16 at 14:00 Vitamin D 1000 unit 1,000 unit DAILY PO Last administered on 04/09/16 08:32; Start 04/08/16 at 09:00 Sodium Chloride (Iv Sodium Chloride 0.45%) 1,000 ml @ 75 mls/hr [id number] IV Last administered on 04/08/16 05:25; Start 04/07/16 at 13:49; Stop 04/08/16 at 21:49; Status DC Ondansetron HCl (Zofran) 4 mg PRN Q4HRS PRN IV NAUSEA/VOMITING; Start 04/07/16 at 14:00 Magnesium Hydroxide (Milk Of Magnesia) 2,400 mg 1X PRN PRN PO CONSTIPATION; Start 04/08/16 at 06:00; Stop 04/09/16 at 05:59; Status DC Bisacodyl 10 mg 10 mg 1X PRN PRN [place] CONSTIPATION; Start 04/08/16 at 16:00; Stop 04/09/16 at 15:59 Bupivacaine HCl/ Epinephrine HCl/ Miscellaneous (Sensorcaine Mpf 0.25%/Adrenalin ) 42.0 ml @ 258 mls/hr Q12H INT ART Last administered on 04/08/16 05:48; Start 04/07/16 at 18:00; Stop 04/08/16 at 06:10; Status DC Acetaminophen/ Hydrocodone Bitart (Lortab 7.5/325) 1 tab PRN Q4HRS PRN PO MODERATE PAIN; Start 04/07/16 at 14:00 Morphine Sulfate 4 mg PRN Q2HR PRN IV SEVERE PAIN; Start 04/07/16 at 14:00 Acetaminophen/ Hydrocodone Bitart (Lortab 7.5/325) 2 tab PRN Q4HRS PRN PO MODERATE PAIN; Start 04/07/16 at 14:00 Dextrose 12.5 gm 12.5 gm PRN Q15MIN PRN IV SEE COMMENTS; Start 04/07/16 at 14: 00 Cefazolin Sodium/ Sodium Chloride (Ancef/Iv Sodium Chloride 0.9% 50ml) 50 ml @ 100 mls/hr Q6H IV Last administered on 04/08/16 05:47; Start 04/07/16 at 18:00 ; Stop 04/08/16 at 06:29; Status DC Propranolol HCl (Inderal) 10 mg BID PO ; Start 04/07/16 at 21:00; Status Cancel Enoxaparin Sodium (Lovenox 40mg Syringe) 40 mg Q24H SQ Last administered on 16:54; Start 04/08/16 at 14:00 Active Scripts Active Reported Propranolol Hcl 10 Mg Tablet 10 Mg PO BID Vitals/I & O Vital Sign - Last 24 Hours 04/08/16 04/08/16 04/08/16 04/08/16 15:00 16:51 19:51 20:00 Temp 98.1 98.4 98.1 98.4 Pulse 70 78 Resp 18 16 18 B/P 124/66 124/75 Pulse Ox 95 94 O2 Delivery Room Air Room Air Room Air Room Air 04/08/16 04/08/16 04/09/16 04/09/16 21:20 23:11 03:13 07:00 Temp 99.1 97.7 98.2 99.1 97.7 98.2 Pulse 78 70 75 69 Resp 18 18 20 B/P 124/75 102/68 119/72 96/49 Pulse Ox 93 96 95 O2 Delivery Room Air Room Air Room Air 04/09/16 04/09/16 09:00 11:00 Temp 98.5 98.5 Pulse 69 73 Resp 20 B/P 96/49 116/68 Pulse Ox 94 O2 Delivery Room Air Intake and Output 04/08/16 04/08/16 04/09/16 15:00 23:00 07:00 Intake Total 120 ml 300 ml Output Total 1150 ml Balance 120 ml -1150 ml 300 ml GALO REYNOSO MD Apr 09, 2016 14:26
[2016-04-09 15:00] VITALS: BP 95/54
[2016-04-09] MEDS: ENOXAPARIN 40 MG/0.4 ML DISP.SYRIN. SQ SCH (15:51)
[2016-04-09 19:30] VITALS: BP 103/60
[2016-04-09 23:21] VITALS: BP 108/67
[2016-04-10] MEDS: ZOLPIDEM 5 MG TABLET. PO PRN (00:11)
[2016-04-10 03:35] VITALS: BP 114/78
[2016-04-10 06:45] LABS: BASO # 0.1 x10^3/uL (0.0-0.2); BASO % 1 % (0-3); EOS % 1 % (0-3); HEMATOCRIT 36.3 % (36.0-47.0); HEMOGLOBIN 11.8 g/dL (12.0-15.5); LYMPH # 1.7 x10^3/uL (1.0-4.8); LYMPH % 17 % (24-48); MEAN CORPUSCULAR HEMOGLOBIN 30 pg (25-35); MEAN CORPUSCULAR HGB CONC 33 g/dL (31-37); MEAN CORPUSCULAR VOLUME 92 fL (79-100); MONO % 11 % (0-9); NEUT % 70 % (31-73); PLATELET COUNT 165 x10^3/uL (140-400); RED BLOOD COUNT 3.96 x10^6/uL (3.50-5.40); RED CELL DISTRIBUTION WIDTH 13.8 % (11.5-14.5); WHITE BLOOD COUNT 9.9 x10^3/uL (4.0-11.0)
[2016-04-10 07:00] VITALS: BP 94/60
[2016-04-10 07:01] LABS: CALCIUM 8.3 mg/dL (8.5-10.1); CREATININE 0.7 mg/dL (0.6-1.0); POTASSIUM 3.6 mmol/L (3.5-5.1)
[2016-04-10] MEDS: PROPRANOLOL 10 MG TABLET. PO SCH ×2 (08:18→21:10)
[2016-04-10] MEDS: CHOLECALCIFEROL (VITAMIN D3) 1,000 UNIT TABLET PO SCH (08:18)
[2016-04-10] MEDS: MULTIVITAMIN with MINERAL TABLET. PO SCH (08:18)
[2016-04-10] MEDS: ACETAMINOPHEN 500 MG TABLET PO SCH ×3 (08:19→21:00)
[2016-04-10] MEDS: SENNOSIDES/DOCUSATE 8.6/50MG TABLET. PO SCH (08:19)
[2016-04-10] MEDS: ACETAMINOPHEN 325 MG TABLET. PO PRN (10:20)
[2016-04-10 11:00] VITALS: BP 99/66
--- NOTE | 2016-04-10 11:30 | PDOC ---
PROGRESS NOTES Subjective Subjective She has minimal pain in the hip. We discussed her potential NSAID allergy. She is not even sure it's truly an allergy as she was taking other medications at the time. I asked her about using a daily 325 mg aspirin for DVT prophylaxis and she believes SHE WILL NOT have a reaction to that. Objective Vital Signs Vital Signs Date Time Temp Pulse Resp B/P Pulse Ox O2 Delivery O2 Flow Rate FiO2 04/10/16 11:00 98.4 122 20 99/66 97 Room Air 98.4 04/09/16 20:00 2.0 Physical Exam Dressing dry. Calf soft and nontender. Limbs are clinically well aligned and equal leg lengths. Good dorsiflexion and plantar flexion at the ankle. Labs Laboratory Tests Test 04/09/16 06:10 04/10/16 05:30 White Blood Count 11.3x10^3/uL (4.0-11.0) 9.9x10^3/uL (4.0-11.0) Red Blood Count 4.11x10^6/uL (3.50-5.40) 3.96x10^6/uL (3.50-5.40) Hemoglobin 12.4g/dL (12.0-15.5) 11.8g/dL (12.0-15.5) Hematocrit 37.7% (36.0-47.0) 36.3% (36.0-47.0) Mean Corpuscular Volume 92fL (79-100) 92fL (79-100) Mean Corpuscular Hemoglobin 30pg (25-35) 30pg (25-35) Mean Corpuscular Hemoglobin Concent 33g/dL (31-37) 33g/dL (31-37) Red Cell Distribution Width 13.8% (11.5-14.5) 13.8% (11.5-14.5) Platelet Count 159x10^3/uL (140-400) 165x10^3/uL (140-400) Neutrophils (%) (Auto) 71% (31-73) 70% (31-73) Lymphocytes (%) (Auto) 17% (24-48) 17% (24-48) Monocytes (%) (Auto) 11% (0-9) 11% (0-9) Eosinophils (%) (Auto) 1% (0-3) 1% (0-3) Basophils (%) (Auto) 0% (0-3) 1% (0-3) Neutrophils # (Auto) 7.9x10^3uL (1.8-7.7) 6.9x10^3uL (1.8-7.7) Lymphocytes # (Auto) 1.9x10^3/uL (1.0-4.8) 1.7x10^3/uL (1.0-4.8) Monocytes # (Auto) 1.3x10^3/uL (0.0-1.1) 1.1x10^3/uL (0.0-1.1) Eosinophils # (Auto) 0.1x10^3/uL (0.0-0.7) 0.1x10^3/uL (0.0-0.7) Basophils # (Auto) 0.0x10^3/uL (0.0-0.2) 0.1x10^3/uL (0.0-0.2) Sodium Level 138mmol/L (136-145) 140mmol/L (136-145) Potassium Level 3.9mmol/L (3.5-5.1) 3.6mmol/L (3.5-5.1) Chloride Level 102mmol/L (98-107) 102mmol/L (98-107) Carbon Dioxide Level 28mmol/L (21-32) 28mmol/L (21-32) Anion Gap 8 (6-14) 10 (6-14) Blood Urea Nitrogen 13mg/dL (7-20) 13mg/dL (7-20) Creatinine 0.7mg/dL (0.6-1.0) 0.7mg/dL (0.6-1.0) Estimated GFR (Cockcroft-Gault) 82.0 82.0 Glucose Level 93mg/dL (70-99) 102mg/dL (70-99) Calcium Level 8.5mg/dL (8.5-10.1) 8.3mg/dL (8.5-10.1) Laboratory Tests Test 04/10/16 05:30 White Blood Count 9.9x10^3/uL (4.0-11.0) Red Blood Count 3.96x10^6/uL (3.50-5.40) Hemoglobin 11.8g/dL (12.0-15.5) Hematocrit 36.3% (36.0-47.0) Mean Corpuscular Volume 92fL (79-100) Mean Corpuscular Hemoglobin 30pg (25-35) Mean Corpuscular Hemoglobin Concent 33g/dL (31-37) Red Cell Distribution Width 13.8% (11.5-14.5) Platelet Count 165x10^3/uL (140-400) Neutrophils (%) (Auto) 70% (31-73) Lymphocytes (%) (Auto) 17% (24-48) Monocytes (%) (Auto) 11% (0-9) Eosinophils (%) (Auto) 1% (0-3) Basophils (%) (Auto) 1% (0-3) Neutrophils # (Auto) 6.9x10^3uL (1.8-7.7) Lymphocytes # (Auto) 1.7x10^3/uL (1.0-4.8) Monocytes # (Auto) 1.1x10^3/uL (0.0-1.1) Eosinophils # (Auto) 0.1x10^3/uL (0.0-0.7) Basophils # (Auto) 0.1x10^3/uL (0.0-0.2) Sodium Level 140mmol/L (136-145) Potassium Level 3.6mmol/L (3.5-5.1) Chloride Level 102mmol/L (98-107) Carbon Dioxide Level 28mmol/L (21-32) Anion Gap 10 (6-14) Blood Urea Nitrogen 13mg/dL (7-20) Creatinine 0.7mg/dL (0.6-1.0) Estimated GFR (Cockcroft-Gault) 82.0 Glucose Level 102mg/dL (70-99) Calcium Level 8.3mg/dL (8.5-10.1) Assessment Assessment Postoperative day 3 after hip bipolar arthroplasty. Problems: Plan Plan of Care She is currently on Lovenox for DVT prophylaxis. As she becomes more mobile, the risks of DVT will decrease. Daily aspirin and mobilization, and SCDs would be acceptable DVT prophylaxis at this point. I discussed starting an aspirin daily now, and she is willing to do that and she does not think she will have an allergy reaction. If she does have any itching or reaction, we will stop the aspirin. Discharge planning, presumably for tomorrow, likely will need fci. CHRISTOPHER DYER MD Apr 10, 2016 11:30
--- NOTE | 2016-04-10 12:10 | PDOC ---
PROGRESS NOTES Chief Complaint Chief Complaint R hip fx s/p fall ASSESSMENT AND PLAN: 1. R hip fx: ORIF on 04/[address] Macario. recovering appropriately. 2. Pain control: adequate. IV and PO narcotics PRN. transition to PO only. 3. Prophylaxis: ASA 325mg as per ortho 4. Dispo: to Rehab on Mon waiting for SW to eval, hope to dc to rehab tmr. hold propanolol if bp <90/50, which is her home med for migraine ppx . 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 some pain tachycardia and low side bp sometime Vitals Vitals Vital Signs Date Time Temp Pulse Resp B/P Pulse Ox O2 Delivery O2 Flow Rate FiO2 04/10/16 11:00 98.4 122 20 99/66 97 Room Air 98.4 04/09/16 20:00 2.0 Physical Exam General: Alert, Cooperative Heart: Regular rate Lungs: Clear Abdomen: Normal bowel sounds, No tenderness Extremities: No clubbing, Other (R lat hip covered w/gauze) Skin: No rashes, Other Labs LABS Laboratory Tests Test 04/10/16 05:30 White Blood Count 9.9x10^3/uL (4.0-11.0) Red Blood Count 3.96x10^6/uL (3.50-5.40) Hemoglobin 11.8g/dL (12.0-15.5) Hematocrit 36.3% (36.0-47.0) Mean Corpuscular Volume 92fL (79-100) Mean Corpuscular Hemoglobin 30pg (25-35) Mean Corpuscular Hemoglobin Concent 33g/dL (31-37) Red Cell Distribution Width 13.8% (11.5-14.5) Platelet Count 165x10^3/uL (140-400) Neutrophils (%) (Auto) 70% (31-73) Lymphocytes (%) (Auto) 17% (24-48) Monocytes (%) (Auto) 11% (0-9) Eosinophils (%) (Auto) 1% (0-3) Basophils (%) (Auto) 1% (0-3) Neutrophils # (Auto) 6.9x10^3uL (1.8-7.7) Lymphocytes # (Auto) 1.7x10^3/uL (1.0-4.8) Monocytes # (Auto) 1.1x10^3/uL (0.0-1.1) Eosinophils # (Auto) 0.1x10^3/uL (0.0-0.7) Basophils # (Auto) 0.1x10^3/uL (0.0-0.2) Sodium Level 140mmol/L (136-145) Potassium Level 3.6mmol/L (3.5-5.1) Chloride Level 102mmol/L (98-107) Carbon Dioxide Level 28mmol/L (21-32) Anion Gap 10 (6-14) Blood Urea Nitrogen 13mg/dL (7-20) Creatinine 0.7mg/dL (0.6-1.0) Estimated GFR (Cockcroft-Gault) 82.0 Glucose Level 102mg/dL (70-99) Calcium Level 8.3mg/dL (8.5-10.1) Review of Systems Review of Systems no fever, chills, sob or chest pain Assessment and Plan Assessmemt and Plan Problems Medical Problems: (1) Closed right hip fracture Status: Acute Problems: Comment Review of Relevant I have reviewed the following items cherri (where applicable) has been applied. Labs Laboratory Tests Test 04/09/16 06:10 04/10/16 05:30 White Blood Count 11.3x10^3/uL (4.0-11.0) 9.9x10^3/uL (4.0-11.0) Red Blood Count 4.11x10^6/uL (3.50-5.40) 3.96x10^6/uL (3.50-5.40) Hemoglobin 12.4g/dL (12.0-15.5) 11.8g/dL (12.0-15.5) Hematocrit 37.7% (36.0-47.0) 36.3% (36.0-47.0) Mean Corpuscular Volume 92fL (79-100) 92fL (79-100) Mean Corpuscular Hemoglobin 30pg (25-35) 30pg (25-35) Mean Corpuscular Hemoglobin Concent 33g/dL (31-37) 33g/dL (31-37) Red Cell Distribution Width 13.8% (11.5-14.5) 13.8% (11.5-14.5) Platelet Count 159x10^3/uL (140-400) 165x10^3/uL (140-400) Neutrophils (%) (Auto) 71% (31-73) 70% (31-73) Lymphocytes (%) (Auto) 17% (24-48) 17% (24-48) Monocytes (%) (Auto) 11% (0-9) 11% (0-9) Eosinophils (%) (Auto) 1% (0-3) 1% (0-3) Basophils (%) (Auto) 0% (0-3) 1% (0-3) Neutrophils # (Auto) 7.9x10^3uL (1.8-7.7) 6.9x10^3uL (1.8-7.7) Lymphocytes # (Auto) 1.9x10^3/uL (1.0-4.8) 1.7x10^3/uL (1.0-4.8) Monocytes # (Auto) 1.3x10^3/uL (0.0-1.1) 1.1x10^3/uL (0.0-1.1) Eosinophils # (Auto) 0.1x10^3/uL (0.0-0.7) 0.1x10^3/uL (0.0-0.7) Basophils # (Auto) 0.0x10^3/uL (0.0-0.2) 0.1x10^3/uL (0.0-0.2) Sodium Level 138mmol/L (136-145) 140mmol/L (136-145) Potassium Level 3.9mmol/L (3.5-5.1) 3.6mmol/L (3.5-5.1) Chloride Level 102mmol/L (98-107) 102mmol/L (98-107) Carbon Dioxide Level 28mmol/L (21-32) 28mmol/L (21-32) Anion Gap 8 (6-14) 10 (6-14) Blood Urea Nitrogen 13mg/dL (7-20) 13mg/dL (7-20) Creatinine 0.7mg/dL (0.6-1.0) 0.7mg/dL (0.6-1.0) Estimated GFR (Cockcroft-Gault) 82.0 82.0 Glucose Level 93mg/dL (70-99) 102mg/dL (70-99) Calcium Level 8.5mg/dL (8.5-10.1) 8.3mg/dL (8.5-10.1) Laboratory Tests Test 04/10/16 05:30 White Blood Count 9.9x10^3/uL (4.0-11.0) Red Blood Count 3.96x10^6/uL (3.50-5.40) Hemoglobin 11.8g/dL (12.0-15.5) Hematocrit 36.3% (36.0-47.0) Mean Corpuscular Volume 92fL (79-100) Mean Corpuscular Hemoglobin 30pg (25-35) Mean Corpuscular Hemoglobin Concent 33g/dL (31-37) Red Cell Distribution Width 13.8% (11.5-14.5) Platelet Count 165x10^3/uL (140-400) Neutrophils (%) (Auto) 70% (31-73) Lymphocytes (%) (Auto) 17% (24-48) Monocytes (%) (Auto) 11% (0-9) Eosinophils (%) (Auto) 1% (0-3) Basophils (%) (Auto) 1% (0-3) Neutrophils # (Auto) 6.9x10^3uL (1.8-7.7) Lymphocytes # (Auto) 1.7x10^3/uL (1.0-4.8) Monocytes # (Auto) 1.1x10^3/uL (0.0-1.1) Eosinophils # (Auto) 0.1x10^3/uL (0.0-0.7) Basophils # (Auto) 0.1x10^3/uL (0.0-0.2) Sodium Level 140mmol/L (136-145) Potassium Level 3.6mmol/L (3.5-5.1) Chloride Level 102mmol/L (98-107) Carbon Dioxide Level 28mmol/L (21-32) Anion Gap 10 (6-14) Blood Urea Nitrogen 13mg/dL (7-20) Creatinine 0.7mg/dL (0.6-1.0) Estimated GFR (Cockcroft-Gault) 82.0 Glucose Level 102mg/dL (70-99) Calcium Level 8.3mg/dL (8.5-10.1) Medications Current Medications Fentanyl Citrate (Fentanyl 2ml Vial) 100 mcg STK-MED ONCE .ROUTE ; Start at 13:51; Stop 04/06/16 at 13:52; Status DC Fentanyl Citrate (Fentanyl 2ml Vial) 25 mcg 1X ONCE IV Last administered on 14:12; Start 04/06/16 at 14:00; Stop 04/06/16 at 14:01; Status DC Fentanyl Citrate (Fentanyl 2ml Vial) 25 mcg 1X ONCE IV Last administered on 14:55; Start 04/06/16 at 14:45; Stop 04/06/16 at 14:46; Status DC Fentanyl Citrate (Fentanyl 2ml Vial) 50 mcg 1X ONCE IV Last administered on 17:13; Start 04/06/16 at 16:00; Stop 04/06/16 at 16:01; Status DC Ondansetron HCl (Zofran) 4 mg PRN Q8HRS PRN IV NAUSEA/VOMITING Last administered on 04/06/16 17:13; Start 04/06/16 at 16:00; Stop 04/07/16 at 15:59 ; Status DC Fentanyl Citrate (Fentanyl 2ml Vial) 50 mcg PRN Q2HR PRN IV PAIN; Start at 16:00; Stop 04/07/16 at 00:00; Status DC Ketorolac Tromethamine (Toradol) 15 mg 1X ONCE IV ; Start 04/06/16 at 18:15; Stop 04/06/16 at 18:16; Status UNV Oxycodone/ Acetaminophen (Percocet 5/325) 1 tab PRN Q4HRS PRN PO PAIN; Start at 18:15 Potassium Chloride (Klor-Con) 20 meq 1X ONCE PO Last administered on 21:19; Start 04/06/16 at 20:15; Stop 04/06/16 at 20:16; Status DC Ketorolac Tromethamine (Toradol) 15 mg PRN Q6HRS PRN IV PAIN; Start 04/06/16 at 20:15; Stop 04/11/16 at 20:14; Status UNV Acetaminophen (Tylenol) 650 mg PRN Q6HRS PRN PO MILD PAIN / TEMP Last administered on 04/10/16 10:20; Start 04/06/16 at 20:15 Propranolol HCl (Inderal) 10 mg BID PO Last administered on 04/09/16 21:02; Start 04/06/16 at 21:00 Tramadol HCl (Ultram) 50 mg PRN Q6HRS PRN PO PAIN Last administered on 00:44; Start 04/06/16 at 20:15; Stop 04/08/16 at 12:57; Status DC Fentanyl Citrate (Fentanyl 2ml Vial) 25 mcg PRN Q2HR PRN IV SEVERE PAIN Last administered on 04/07/16 01:47; Start 04/06/16 at 22:00; Stop 04/09/16 at 13:19 ; Status DC Zolpidem Tartrate (Ambien) 5 mg PRN QHS PRN PO INSOMNIA, MAY REPEAT IN 1HR Last administered on 04/10/16 00:11; Start 04/06/16 at 22:00 Tobramycin Sulfate 1.2 gm STK-MED ONCE .ROUTE Last administered on 04/07/16 13 :00; Start 04/07/16 at 08:13; Stop 04/07/16 at 08:14; Status DC Vancomycin HCl 1 gm STK-MED ONCE .ROUTE Last administered on 04/07/16 13:00; Start 04/07/16 at 08:13; Stop 04/07/16 at 08:14; Status DC Fentanyl Citrate (Fentanyl 2ml Vial) 50 mcg PRN Q5MIN PRN IV Acute Pain; Start 04/07/16 at 09:00; Stop 04/07/16 at 18:00; Status DC Morphine Sulfate 4 mg PRN Q10MIN PRN IV Moderate Pain; Start 04/07/16 at 09:00 ; Stop 04/07/16 at 18:00; Status DC Hydromorphone HCl (Dilaudid) 0.4 mg PRN Q10MIN PRN IV Moderate to severe pain; Start 04/07/16 at 09:00; Stop 04/07/16 at 18:00; Status DC Meperidine HCl (Demerol) 12.5 mg PRN Q5MIN PRN IV SHIVERING; Start 04/07/16 at 09:00; Stop 04/08/16 at 08:59; Status DC Prochlorperazine Edisylate (Compazine) 5 mg PRN Q6HRS PRN IV Nausea/Vomiting, 1st Choice; Start 04/07/16 at 09:00; Stop 04/07/16 at 18:00; Status DC Diphenhydramine HCl 12.5 mg 12.5 mg PRN Q2HR PRN IV ITCHING; Start 04/07/16 at 09:00; Stop 04/07/16 at 18:00; Status DC Cefazolin Sodium 50 ml @ 100 mls/hr 1X PREOP PRN IV see comments Last administered on 04/07/16 12:40; Start 04/07/16 at 09:45; Stop 04/09/16 at 13:03 ; Status DC Lactated Ringer's 1,000 ml @ 100 mls/hr Q10H IV Last administered on 11:10; Start 04/07/16 at 11:15; Stop 04/08/16 at 21:49; Status DC Tranexamic Acid 1000 mg/Sodium Chloride 60 ml @ 60 mls/hr 1X PERIOP ONCE INJ Last administered on 04/07/16 12:50; Start 04/07/16 at 12:00; Stop 04/07/16 at 13:10; Status DC Tranexamic Acid 1000 mg/Sodium Chloride 60 ml @ 60 mls/hr 1X PERIOP ONCE INJ Last administered on 04/07/16 13:39; Start 04/07/16 at 13:00; Stop 04/07/16 at 14:02; Status DC Morphine Sulfate 5 mg/Ropivacaine 60 ml/Epinephrine HCl 0.5 mg/Sodium Chloride 99.5 ml @ 99.5 mls/hr 1X PERIOP ONCE INT ART Last administered on 04/07/16 13:00; Start 04/07/16 at 12:00; Stop 04/07/16 at 13:10; Status DC Propofol (Diprivan) 100 ml @ As Directed STK-MED ONCE IV ; Start 04/07/16 at 11 :30; Stop 04/07/16 at 11:31; Status DC Ketamine HCl 500 mg STK-MED ONCE .ROUTE ; Start 04/07/16 at 11:32; Stop at 11:33; Status DC Dexamethasone Sodium Phosphate (Decadron) 20 mg STK-MED ONCE .ROUTE ; Start at 11:36; Stop 04/07/16 at 11:37; Status DC Ondansetron HCl (Zofran) 4 mg STK-MED ONCE .ROUTE ; Start 04/07/16 at 11:36; Stop 04/07/16 at 11:37; Status DC Famotidine (Pepcid) 20 mg STK-MED ONCE .ROUTE ; Start 04/07/16 at 11:36; Stop at 11:37; Status DC Fentanyl Citrate (Fentanyl 2ml Vial) 100 mcg STK-MED ONCE .ROUTE ; Start at 11:38; Stop 04/07/16 at 11:39; Status DC Midazolam HCl (Versed) 2 mg STK-MED ONCE .ROUTE ; Start 04/07/16 at 12:12; Stop 04/07/16 at 12:13; Status DC Epinephrine HCl (Adrenalin) 30 mg STK-MED ONCE .ROUTE Last administered on 04/07 13:00; Start 04/07/16 at 12:55; Stop 04/07/16 at 12:56; Status DC Phenylephrine HCl 1 mg STK-MED ONCE IV ; Start 04/07/16 at 12:59; Stop 04/07/16 at 13:00; Status DC Ephedrine Sulfate 50 mg 50 mg STK-MED ONCE IV ; Start 04/07/16 at 13:00; Stop at 13:01; Status DC Acetaminophen (Ofirmev) 100 ml @ As Directed STK-MED ONCE IV ; Start 04/07/16 at 13:42; Stop 04/07/16 at 13:43; Status DC Tramadol HCl (Ultram) 50 mg PRN QID PRN PO PAIN Last administered on 04/08/16 16:51; Start 04/07/16 at 14:00 Oxycodone HCl (Roxicodone) 5 mg PRN Q3HRS PRN PO PAIN; Start 04/07/16 at 14:00 Morphine Sulfate 2 mg PRN Q1HR PRN IV SEVERE PAIN; Start 04/07/16 at 14:00 Fentanyl Citrate (Fentanyl 2ml Vial) 25 mcg PRN Q1HR PRN IV PAIN; Start at 14:00 Acetaminophen (Tylenol) 500 mg TID PO Last administered on 04/07/16 21:17; Start 04/07/16 at 14:00 Multivitamins/ Calcium (Thera M Plus) 1 tab DAILY PO Last administered on 08:18; Start 04/08/16 at 09:00 Senna/Docusate Sodium (Senna Plus) 1 tab DAILY PO Last administered on 09:17; Start 04/08/16 at 09:00 Polyethylene Glycol (miraLAX PACKET) 17 gm PRN DAILY PRN PO CONSTIPATION; Start 04/07/16 at 14:00 Vitamin D 1000 unit 1,000 unit DAILY PO Last administered on 04/10/16 08:18; Start 04/08/16 at 09:00 Sodium Chloride (Iv Sodium Chloride 0.45%) 1,000 ml @ 75 mls/hr [id number] IV Last administered on 04/08/16 05:25; Start 04/07/16 at 13:49; Stop 04/08/16 at 21:49; Status DC Ondansetron HCl (Zofran) 4 mg PRN Q4HRS PRN IV NAUSEA/VOMITING; Start 04/07/16 at 14:00 Magnesium Hydroxide (Milk Of Magnesia) 2,400 mg 1X PRN PRN PO CONSTIPATION; Start 04/08/16 at 06:00; Stop 04/09/16 at 05:59; Status DC Bisacodyl 10 mg 10 mg 1X PRN PRN NC CONSTIPATION; Start 04/08/16 at 16:00; Stop 04/09/16 at 15:59; Status DC Bupivacaine HCl/ Epinephrine HCl/ Miscellaneous (Sensorcaine Mpf 0.25%/Adrenalin ) 42.0 ml @ 258 mls/hr Q12H INT ART Last administered on 04/08/16 05:48; Start 04/07/16 at 18:00; Stop 04/08/16 at 06:10; Status DC Acetaminophen/ Hydrocodone Bitart (Lortab 7.5/325) 1 tab PRN Q4HRS PRN PO MODERATE PAIN; Start 04/07/16 at 14:00 Morphine Sulfate 4 mg PRN Q2HR PRN IV SEVERE PAIN; Start 04/07/16 at 14:00 Acetaminophen/ Hydrocodone Bitart (Lortab 7.5/325) 2 tab PRN Q4HRS PRN PO MODERATE PAIN; Start 04/07/16 at 14:00 Dextrose 12.5 gm 12.5 gm PRN Q15MIN PRN IV SEE COMMENTS; Start 04/07/16 at 14: 00 Cefazolin Sodium/ Sodium Chloride (Ancef/Iv Sodium Chloride 0.9% 50ml) 50 ml @ 100 mls/hr Q6H IV Last administered on 04/08/16 05:47; Start 04/07/16 at 18:00 ; Stop 04/08/16 at 06:29; Status DC Propranolol HCl (Inderal) 10 mg BID PO ; Start 04/07/16 at 21:00; Status Cancel Enoxaparin Sodium (Lovenox 40mg Syringe) 40 mg Q24H SQ Last administered on 15:51; Start 04/08/16 at 14:00; Stop 04/10/16 at 11:35; Status DC Aspirin (Ecotrin) 325 mg QHS PO ; Start 04/10/16 at 21:00; Stop 05/10/16 at 20: 59 Enoxaparin Sodium (Lovenox 40mg Syringe) 40 mg Q24H SQ ; Start 04/10/16 at 14:00 ; Stop 04/11/16 at 23:00 Active Scripts Active Reported Propranolol Hcl 10 Mg Tablet 10 Mg PO BID Vitals/I & O Vital Sign - Last 24 Hours 04/09/16 04/09/16 04/09/16 04/09/16 15:00 19:30 20:00 21:02 Temp 98.5 98.8 98.5 98.8 Pulse 93 124 124 Resp 20 18 B/P 95/54 103/60 103/60 Pulse Ox 93 95 O2 Delivery Room Air Room Air Room Air O2 Flow Rate 2.0 04/09/16 04/10/16 04/10/16 04/10/16 23:21 03:35 07:00 08:18 Temp 98.4 98.9 98.7 98.4 98.9 98.7 Pulse 97 85 78 78 Resp 18 18 20 B/P 108/67 114/78 94/60 94/60 Pulse Ox 94 94 96 O2 Delivery Room Air Room Air Room Air 04/10/16 11:00 Temp 98.4 98.4 Pulse 122 Resp 20 B/P 99/66 Pulse Ox 97 O2 Delivery Room Air Intake and Output 04/09/16 04/09/16 04/10/16 15:00 23:00 07:00 Intake Total 610 ml Output Total 200 ml Balance -200 ml 610 ml GALO REYNOSO MD Apr 10, 2016 12:10
[2016-04-10] MEDS ORDERED: IV NORMAL SALINE 1000ML BAG 1,000 ML IV ONE (12:30)
[2016-04-10] MEDS: ENOXAPARIN 40 MG/0.4 ML DISP.SYRIN. SQ SCH (14:03)
[2016-04-10 15:00] VITALS: BP 90/54
[2016-04-10 19:20] VITALS: BP 103/67
[2016-04-10] MEDS: ASPIRIN ENTERIC COATED 325 MG TABLET.DR. PO SCH (21:10)
[2016-04-10 23:03] VITALS: BP 96/67
[2016-04-11 03:00] VITALS: BP 97/61
[2016-04-11 06:08] LABS: BASO # 0.1 x10^3/uL (0.0-0.2); BASO % 1 % (0-3); EOS % 3 % (0-3); HEMATOCRIT 33.6 % (36.0-47.0); LYMPH # 1.8 x10^3/uL (1.0-4.8); LYMPH % 21 % (24-48); MEAN CORPUSCULAR HEMOGLOBIN 30 pg (25-35); MEAN CORPUSCULAR HGB CONC 33 g/dL (31-37); MEAN CORPUSCULAR VOLUME 92 fL (79-100); MONO % 11 % (0-9); NEUT % 65 % (31-73); PLATELET COUNT 179 x10^3/uL (140-400); RED BLOOD COUNT 3.64 x10^6/uL (3.50-5.40); WHITE BLOOD COUNT 8.8 x10^3/uL (4.0-11.0)
[2016-04-11 06:25] LABS: CALCIUM 8.1 mg/dL (8.5-10.1); CREATININE 0.6 mg/dL (0.6-1.0); POTASSIUM 4.1 mmol/L (3.5-5.1)
[2016-04-11 07:00] VITALS: BP 104/47
[2016-04-11] MEDS: MULTIVITAMIN with MINERAL TABLET. PO SCH (08:47)
[2016-04-11] MEDS: CHOLECALCIFEROL (VITAMIN D3) 1,000 UNIT TABLET PO SCH (08:48)
[2016-04-11] MEDS: PROPRANOLOL 10 MG TABLET. PO SCH ×2 (08:48→20:51)
[2016-04-11] MEDS: SENNOSIDES/DOCUSATE 8.6/50MG TABLET. PO SCH (08:51)
[2016-04-11] MEDS: ACETAMINOPHEN 500 MG TABLET PO SCH ×3 (08:53→20:50)
[2016-04-11 11:00] VITALS: BP 107/70
[2016-04-11] MEDS ORDERED: ZOLP5TAB PO (11:17)
[2016-04-11] MEDS ORDERED: TRAM50TA PO (11:17)
--- NOTE | 2016-04-11 13:04 | PDOC ---
PROGRESS NOTES Chief Complaint Chief Complaint R hip fx s/p fall ASSESSMENT AND PLAN: 1. R hip fx: ORIF on 04/[address] Macario. recovering appropriately. 2. Pain control: adequate. IV and PO narcotics PRN. transition to PO only. 3. Prophylaxis: ASA 325mg as per ortho 4. Dispo: to Rehab on Mon waiting for SW to eval, hope to dc to rehab tmr. hold propanolol if bp <90/50, which is her home med for migraine ppx . 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 some pain tachycardia and low side bp sometime ' placement pending Vitals Vitals Vital Signs Date Time Temp Pulse Resp B/P Pulse Ox O2 Delivery O2 Flow Rate FiO2 04/11/16 11:00 98.7 72 14 107/70 99 Room Air 98.7 Physical Exam General: Alert, Cooperative Heart: Regular rate Lungs: Clear Abdomen: Normal bowel sounds, No tenderness Extremities: No clubbing, Other (R lat hip covered w/gauze) Skin: No rashes, Other Labs LABS Laboratory Tests Test 04/11/16 05:35 White Blood Count 8.8x10^3/uL (4.0-11.0) Red Blood Count 3.64x10^6/uL (3.50-5.40) Hemoglobin 11.0g/dL (12.0-15.5) Hematocrit 33.6% (36.0-47.0) Mean Corpuscular Volume 92fL (79-100) Mean Corpuscular Hemoglobin 30pg (25-35) Mean Corpuscular Hemoglobin Concent 33g/dL (31-37) Red Cell Distribution Width 14.0% (11.5-14.5) Platelet Count 179x10^3/uL (140-400) Neutrophils (%) (Auto) 65% (31-73) Lymphocytes (%) (Auto) 21% (24-48) Monocytes (%) (Auto) 11% (0-9) Eosinophils (%) (Auto) 3% (0-3) Basophils (%) (Auto) 1% (0-3) Neutrophils # (Auto) 5.7x10^3uL (1.8-7.7) Lymphocytes # (Auto) 1.8x10^3/uL (1.0-4.8) Monocytes # (Auto) 0.9x10^3/uL (0.0-1.1) Eosinophils # (Auto) 0.2x10^3/uL (0.0-0.7) Basophils # (Auto) 0.1x10^3/uL (0.0-0.2) Sodium Level 143mmol/L (136-145) Potassium Level 4.1mmol/L (3.5-5.1) Chloride Level 106mmol/L (98-107) Carbon Dioxide Level 28mmol/L (21-32) Anion Gap 9 (6-14) Blood Urea Nitrogen 12mg/dL (7-20) Creatinine 0.6mg/dL (0.6-1.0) Estimated GFR (Cockcroft-Gault) 98.0 Glucose Level 95mg/dL (70-99) Calcium Level 8.1mg/dL (8.5-10.1) Assessment and Plan Assessmemt and Plan Problems Medical Problems: (1) Closed right hip fracture Status: Acute Problems: Comment Review of Relevant I have reviewed the following items cherri (where applicable) has been applied. Labs Laboratory Tests Test 04/10/16 05:30 04/11/16 05:35 White Blood Count 9.9x10^3/uL (4.0-11.0) 8.8x10^3/uL (4.0-11.0) Red Blood Count 3.96x10^6/uL (3.50-5.40) 3.64x10^6/uL (3.50-5.40) Hemoglobin 11.8g/dL (12.0-15.5) 11.0g/dL (12.0-15.5) Hematocrit 36.3% (36.0-47.0) 33.6% (36.0-47.0) Mean Corpuscular Volume 92fL (79-100) 92fL (79-100) Mean Corpuscular Hemoglobin 30pg (25-35) 30pg (25-35) Mean Corpuscular Hemoglobin Concent 33g/dL (31-37) 33g/dL (31-37) Red Cell Distribution Width 13.8% (11.5-14.5) 14.0% (11.5-14.5) Platelet Count 165x10^3/uL (140-400) 179x10^3/uL (140-400) Neutrophils (%) (Auto) 70% (31-73) 65% (31-73) Lymphocytes (%) (Auto) 17% (24-48) 21% (24-48) Monocytes (%) (Auto) 11% (0-9) 11% (0-9) Eosinophils (%) (Auto) 1% (0-3) 3% (0-3) Basophils (%) (Auto) 1% (0-3) 1% (0-3) Neutrophils # (Auto) 6.9x10^3uL (1.8-7.7) 5.7x10^3uL (1.8-7.7) Lymphocytes # (Auto) 1.7x10^3/uL (1.0-4.8) 1.8x10^3/uL (1.0-4.8) Monocytes # (Auto) 1.1x10^3/uL (0.0-1.1) 0.9x10^3/uL (0.0-1.1) Eosinophils # (Auto) 0.1x10^3/uL (0.0-0.7) 0.2x10^3/uL (0.0-0.7) Basophils # (Auto) 0.1x10^3/uL (0.0-0.2) 0.1x10^3/uL (0.0-0.2) Sodium Level 140mmol/L (136-145) 143mmol/L (136-145) Potassium Level 3.6mmol/L (3.5-5.1) 4.1mmol/L (3.5-5.1) Chloride Level 102mmol/L (98-107) 106mmol/L (98-107) Carbon Dioxide Level 28mmol/L (21-32) 28mmol/L (21-32) Anion Gap 10 (6-14) 9 (6-14) Blood Urea Nitrogen 13mg/dL (7-20) 12mg/dL (7-20) Creatinine 0.7mg/dL (0.6-1.0) 0.6mg/dL (0.6-1.0) Estimated GFR (Cockcroft-Gault) 82.0 98.0 Glucose Level 102mg/dL (70-99) 95mg/dL (70-99) Calcium Level 8.3mg/dL (8.5-10.1) 8.1mg/dL (8.5-10.1) Laboratory Tests Test 04/11/16 05:35 White Blood Count 8.8x10^3/uL (4.0-11.0) Red Blood Count 3.64x10^6/uL (3.50-5.40) Hemoglobin 11.0g/dL (12.0-15.5) Hematocrit 33.6% (36.0-47.0) Mean Corpuscular Volume 92fL (79-100) Mean Corpuscular Hemoglobin 30pg (25-35) Mean Corpuscular Hemoglobin Concent 33g/dL (31-37) Red Cell Distribution Width 14.0% (11.5-14.5) Platelet Count 179x10^3/uL (140-400) Neutrophils (%) (Auto) 65% (31-73) Lymphocytes (%) (Auto) 21% (24-48) Monocytes (%) (Auto) 11% (0-9) Eosinophils (%) (Auto) 3% (0-3) Basophils (%) (Auto) 1% (0-3) Neutrophils # (Auto) 5.7x10^3uL (1.8-7.7) Lymphocytes # (Auto) 1.8x10^3/uL (1.0-4.8) Monocytes # (Auto) 0.9x10^3/uL (0.0-1.1) Eosinophils # (Auto) 0.2x10^3/uL (0.0-0.7) Basophils # (Auto) 0.1x10^3/uL (0.0-0.2) Sodium Level 143mmol/L (136-145) Potassium Level 4.1mmol/L (3.5-5.1) Chloride Level 106mmol/L (98-107) Carbon Dioxide Level 28mmol/L (21-32) Anion Gap 9 (6-14) Blood Urea Nitrogen 12mg/dL (7-20) Creatinine 0.6mg/dL (0.6-1.0) Estimated GFR (Cockcroft-Gault) 98.0 Glucose Level 95mg/dL (70-99) Calcium Level 8.1mg/dL (8.5-10.1) Medications Current Medications Fentanyl Citrate (Fentanyl 2ml Vial) 100 mcg STK-MED ONCE .ROUTE ; Start at 13:51; Stop 04/06/16 at 13:52; Status DC Fentanyl Citrate (Fentanyl 2ml Vial) 25 mcg 1X ONCE IV Last administered on 14:12; Start 04/06/16 at 14:00; Stop 04/06/16 at 14:01; Status DC Fentanyl Citrate (Fentanyl 2ml Vial) 25 mcg 1X ONCE IV Last administered on 14:55; Start 04/06/16 at 14:45; Stop 04/06/16 at 14:46; Status DC Fentanyl Citrate (Fentanyl 2ml Vial) 50 mcg 1X ONCE IV Last administered on 17:13; Start 04/06/16 at 16:00; Stop 04/06/16 at 16:01; Status DC Ondansetron HCl (Zofran) 4 mg PRN Q8HRS PRN IV NAUSEA/VOMITING Last administered on 04/06/16 17:13; Start 04/06/16 at 16:00; Stop 04/07/16 at 15:59 ; Status DC Fentanyl Citrate (Fentanyl 2ml Vial) 50 mcg PRN Q2HR PRN IV PAIN; Start at 16:00; Stop 04/07/16 at 00:00; Status DC Ketorolac Tromethamine (Toradol) 15 mg 1X ONCE IV ; Start 04/06/16 at 18:15; Stop 04/06/16 at 18:16; Status UNV Oxycodone/ Acetaminophen (Percocet 5/325) 1 tab PRN Q4HRS PRN PO PAIN; Start at 18:15 Potassium Chloride (Klor-Con) 20 meq 1X ONCE PO Last administered on 21:19; Start 04/06/16 at 20:15; Stop 04/06/16 at 20:16; Status DC Ketorolac Tromethamine (Toradol) 15 mg PRN Q6HRS PRN IV PAIN; Start 04/06/16 at 20:15; Stop 04/11/16 at 20:14; Status UNV Acetaminophen (Tylenol) 650 mg PRN Q6HRS PRN PO MILD PAIN / TEMP Last administered on 04/10/16 10:20; Start 04/06/16 at 20:15 Propranolol HCl (Inderal) 10 mg BID PO Last administered on 04/11/16 08:48; Start 04/06/16 at 21:00 Tramadol HCl (Ultram) 50 mg PRN Q6HRS PRN PO PAIN Last administered on 00:44; Start 04/06/16 at 20:15; Stop 04/08/16 at 12:57; Status DC Fentanyl Citrate (Fentanyl 2ml Vial) 25 mcg PRN Q2HR PRN IV SEVERE PAIN Last administered on 04/07/16 01:47; Start 04/06/16 at 22:00; Stop 04/09/16 at 13:19 ; Status DC Zolpidem Tartrate (Ambien) 5 mg PRN QHS PRN PO INSOMNIA, MAY REPEAT IN 1HR Last administered on 04/10/16 00:11; Start 04/06/16 at 22:00 Tobramycin Sulfate 1.2 gm STK-MED ONCE .ROUTE Last administered on 04/07/16 13 :00; Start 04/07/16 at 08:13; Stop 04/07/16 at 08:14; Status DC Vancomycin HCl 1 gm STK-MED ONCE .ROUTE Last administered on 04/07/16 13:00; Start 04/07/16 at 08:13; Stop 04/07/16 at 08:14; Status DC Fentanyl Citrate (Fentanyl 2ml Vial) 50 mcg PRN Q5MIN PRN IV Acute Pain; Start 04/07/16 at 09:00; Stop 04/07/16 at 18:00; Status DC Morphine Sulfate 4 mg PRN Q10MIN PRN IV Moderate Pain; Start 04/07/16 at 09:00 ; Stop 04/07/16 at 18:00; Status DC Hydromorphone HCl (Dilaudid) 0.4 mg PRN Q10MIN PRN IV Moderate to severe pain; Start 04/07/16 at 09:00; Stop 04/07/16 at 18:00; Status DC Meperidine HCl (Demerol) 12.5 mg PRN Q5MIN PRN IV SHIVERING; Start 04/07/16 at 09:00; Stop 04/08/16 at 08:59; Status DC Prochlorperazine Edisylate (Compazine) 5 mg PRN Q6HRS PRN IV Nausea/Vomiting, 1st Choice; Start 04/07/16 at 09:00; Stop 04/07/16 at 18:00; Status DC Diphenhydramine HCl 12.5 mg 12.5 mg PRN Q2HR PRN IV ITCHING; Start 04/07/16 at 09:00; Stop 04/07/16 at 18:00; Status DC Cefazolin Sodium 50 ml @ 100 mls/hr 1X PREOP PRN IV see comments Last administered on 04/07/16 12:40; Start 04/07/16 at 09:45; Stop 04/09/16 at 13:03 ; Status DC Lactated Ringer's 1,000 ml @ 100 mls/hr Q10H IV Last administered on 11:10; Start 04/07/16 at 11:15; Stop 04/08/16 at 21:49; Status DC Tranexamic Acid 1000 mg/Sodium Chloride 60 ml @ 60 mls/hr 1X PERIOP ONCE INJ Last administered on 04/07/16 12:50; Start 04/07/16 at 12:00; Stop 04/07/16 at 13:10; Status DC Tranexamic Acid 1000 mg/Sodium Chloride 60 ml @ 60 mls/hr 1X PERIOP ONCE INJ Last administered on 04/07/16 13:39; Start 04/07/16 at 13:00; Stop 04/07/16 at 14:02; Status DC Morphine Sulfate 5 mg/Ropivacaine 60 ml/Epinephrine HCl 0.5 mg/Sodium Chloride 99.5 ml @ 99.5 mls/hr 1X PERIOP ONCE INT ART Last administered on 04/07/16 13:00; Start 04/07/16 at 12:00; Stop 04/07/16 at 13:10; Status DC Propofol (Diprivan) 100 ml @ As Directed STK-MED ONCE IV ; Start 04/07/16 at 11 :30; Stop 04/07/16 at 11:31; Status DC Ketamine HCl 500 mg STK-MED ONCE .ROUTE ; Start 04/07/16 at 11:32; Stop at 11:33; Status DC Dexamethasone Sodium Phosphate (Decadron) 20 mg STK-MED ONCE .ROUTE ; Start at 11:36; Stop 04/07/16 at 11:37; Status DC Ondansetron HCl (Zofran) 4 mg STK-MED ONCE .ROUTE ; Start 04/07/16 at 11:36; Stop 04/07/16 at 11:37; Status DC Famotidine (Pepcid) 20 mg STK-MED ONCE .ROUTE ; Start 04/07/16 at 11:36; Stop at 11:37; Status DC Fentanyl Citrate (Fentanyl 2ml Vial) 100 mcg STK-MED ONCE .ROUTE ; Start at 11:38; Stop 04/07/16 at 11:39; Status DC Midazolam HCl (Versed) 2 mg STK-MED ONCE .ROUTE ; Start 04/07/16 at 12:12; Stop 04/07/16 at 12:13; Status DC Epinephrine HCl (Adrenalin) 30 mg STK-MED ONCE .ROUTE Last administered on 04/07 13:00; Start 04/07/16 at 12:55; Stop 04/07/16 at 12:56; Status DC Phenylephrine HCl 1 mg STK-MED ONCE IV ; Start 04/07/16 at 12:59; Stop 04/07/16 at 13:00; Status DC Ephedrine Sulfate 50 mg 50 mg STK-MED ONCE IV ; Start 04/07/16 at 13:00; Stop at 13:01; Status DC Acetaminophen (Ofirmev) 100 ml @ As Directed STK-MED ONCE IV ; Start 04/07/16 at 13:42; Stop 04/07/16 at 13:43; Status DC Tramadol HCl (Ultram) 50 mg PRN QID PRN PO PAIN Last administered on 04/08/16t 16:51; Start 04/07/16 at 14:00 Oxycodone HCl (Roxicodone) 5 mg PRN Q3HRS PRN PO PAIN; Start 04/07/16 at 14:00 Morphine Sulfate 2 mg PRN Q1HR PRN IV SEVERE PAIN; Start 04/07/16 at 14:00 Fentanyl Citrate (Fentanyl 2ml Vial) 25 mcg PRN Q1HR PRN IV PAIN; Start at 14:00 Acetaminophen (Tylenol) 500 mg TID PO Last administered on 04/07/16 21:17; Start 04/07/16 at 14:00 Multivitamins/ Calcium (Thera M Plus) 1 tab DAILY PO Last administered on 08:47; Start 04/08/16 at 09:00 Senna/Docusate Sodium (Senna Plus) 1 tab DAILY PO Last administered on 09:17; Start 04/08/16 at 09:00 Polyethylene Glycol (miraLAX PACKET) 17 gm PRN DAILY PRN PO CONSTIPATION; Start 04/07/16 at 14:00 Vitamin D 1000 unit 1,000 unit DAILY PO Last administered on 04/11/16 08:48; Start 04/08/16 at 09:00 Sodium Chloride (Iv Sodium Chloride 0.45%) 1,000 ml @ 75 mls/hr [id number] IV Last administered on 04/08/16 05:25; Start 04/07/16 at 13:49; Stop 04/08/16 at 21:49; Status DC Ondansetron HCl (Zofran) 4 mg PRN Q4HRS PRN IV NAUSEA/VOMITING; Start 04/07/16 at 14:00 Magnesium Hydroxide (Milk Of Magnesia) 2,400 mg 1X PRN PRN PO CONSTIPATION; Start 04/08/16 at 06:00; Stop 04/09/16 at 05:59; Status DC Bisacodyl 10 mg 10 mg 1X PRN PRN NV CONSTIPATION; Start 04/08/16 at 16:00; Stop 04/09/16 at 15:59; Status DC Bupivacaine HCl/ Epinephrine HCl/ Miscellaneous (Sensorcaine Mpf 0.25%/Adrenalin ) 42.0 ml @ 258 mls/hr Q12H INT ART Last administered on 04/08/16 05:48; Start 04/07/16 at 18:00; Stop 04/08/16 at 06:10; Status DC Acetaminophen/ Hydrocodone Bitart (Lortab 7.5/325) 1 tab PRN Q4HRS PRN PO MODERATE PAIN; Start 04/07/16 at 14:00 Morphine Sulfate 4 mg PRN Q2HR PRN IV SEVERE PAIN; Start 04/07/16 at 14:00 Acetaminophen/ Hydrocodone Bitart (Lortab 7.5/325) 2 tab PRN Q4HRS PRN PO MODERATE PAIN; Start 04/07/16 at 14:00 Dextrose 12.5 gm 12.5 gm PRN Q15MIN PRN IV SEE COMMENTS; Start 04/07/16 at 14: 00 Cefazolin Sodium/ Sodium Chloride (Ancef/Iv Sodium Chloride 0.9% 50ml) 50 ml @ 100 mls/hr Q6H IV Last administered on 04/08/16 05:47; Start 04/07/16 at 18:00 ; Stop 04/08/16 at 06:29; Status DC Propranolol HCl (Inderal) 10 mg BID PO ; Start 04/07/16 at 21:00; Status Cancel Enoxaparin Sodium (Lovenox 40mg Syringe) 40 mg Q24H SQ Last administered on 15:51; Start 04/08/16 at 14:00; Stop 04/10/16 at 11:35; Status DC Aspirin (Ecotrin) 325 mg QHS PO Last administered on 04/10/16 21:10; Start at 21:00; Stop 05/10/16 at 20:59 Enoxaparin Sodium 40 mg 40 mg Q24H SQ Last administered on 04/10/16 14:03; Start 04/10/16 at 14:00; Stop 04/11/16 at 23:00 Sodium Chloride (Iv Sodium Chloride 0.9% 1000ml Bag) 1,000 ml @ 75 mls/hr 1X ONCE IV Last administered on 04/10/16 12:44; Start 04/10/16 at 12:30; Stop at 01:49; Status DC Active Scripts Active Ambien (Zolpidem Tartrate) 5 Mg Tablet 2.5 Mg PO PRN QHS PRN Tramadol Hcl 50 Mg Tablet 50 Mg PO PRN QID PRN Reported Propranolol Hcl 10 Mg Tablet 10 Mg PO BID Vitals/I & O Vital Sign - Last 24 Hours 04/10/16 04/10/16 04/10/16 04/10/16 15:00 19:20 19:30 21:10 Temp 97.9 97.9 97.9 97.9 Pulse 75 90 90 Resp 18 B/P 90/54 103/67 103/67 Pulse Ox 95 99 O2 Delivery Room Air Room Air Room Air 04/10/16 04/11/16 04/11/16 04/11/16 23:03 03:00 07:00 08:00 Temp 99.1 98.6 98.7 99.1 98.6 98.7 Pulse 80 82 94 Resp 18 18 14 B/P 96/67 97/61 104/47 Pulse Ox 97 97 97 O2 Delivery Room Air Room Air Room Air Room Air 04/11/16 04/11/16 08:48 11:00 Temp 98.7 98.7 Pulse 99 72 Resp 14 B/P 101/68 107/70 Pulse Ox 99 O2 Delivery Room Air Intake and Output 04/10/16 04/10/16 04/11/16 15:00 23:00 07:00 Intake Total 1980 ml Output Total 200 ml Balance 1780 ml ADRIAN JENSEN MD Apr 11, 2016 13:04
[2016-04-11] MEDS ORDERED: ENOXAPARIN 40 MG/0.4 ML DISP.SYRIN. SQ ONE (13:15)
[2016-04-11] MEDS: ENOXAPARIN 40 MG/0.4 ML DISP.SYRIN. SQ SCH (14:00)
--- NOTE | 2016-04-11 14:08 | PATHOLOGY ---
PATHOLOGY REPORT * * * * * * * * FINAL DIAGNOSIS: Femoral head, right bipolar hip arthroplasty: - Focal fragmentation of bony trabeculae and recent intertrabecular hemorrhage consistent with fracture. - Degenerative arthritis. COMMENT: There is no evidence of malignancy. (JPM:; d/t: 04/11/16) REPORT ELECTRONICALLY SIGNED BY: Karson Meléndez M.D. DATE/TIME: 04/11/2016 14:07 * * * * * * * * GROSS PATHOLOGY: Received in formalin labeled "Irasema Ren, right hip tissue," is a femoral head measuring 4.8 x 4.8 x 4.5 cm in greatest dimensions. The articular surface is light bray and smooth to irregular in contour. Sectioning reveals a light bray marrow space, with the distal most aspect hemorrhagic in appearance, consistent with a fracture site. Medical Center Director tissue from the fracture site is submitted in cassette A1, following decalcification. (CAA; 04/08/2016) INITIAL CPT CODE(S): A; 54072, 03164 Professional services performed [place] [facility] [address] Technical services performed by [facility] at [address] [place] [address]. SPECIMEN(S) RECEIVED: A.Right hip tissue CLINICAL HISTORY: None provided PATIENT: IRASEMA REN /AGE: 9 1940 (Age: 75) PATIENT #: [id number] ALT CASE #: SPECIMEN COLLECTION DATE: 04/07/2016 SPECIMEN RECEIVED DATE: 04/07/2016 [facility] - [address] [place] [address] - PHONE: [phone] * * * END OF REPORT * * *
[2016-04-11 15:00] VITALS: BP 108/62
[2016-04-11 19:20] VITALS: BP 108/54
[2016-04-11] MEDS: ASPIRIN ENTERIC COATED 325 MG TABLET.DR. PO SCH (20:51)
[2016-04-11 23:15] VITALS: BP 129/80
[2016-04-12 03:34] VITALS: BP 112/60
[2016-04-12 07:00] VITALS: BP 108/57
[2016-04-12] MEDS: SENNOSIDES/DOCUSATE 8.6/50MG TABLET. PO SCH (07:16)
[2016-04-12] MEDS: PROPRANOLOL 10 MG TABLET. PO SCH ×2 (08:20→21:23)
[2016-04-12] MEDS: ACETAMINOPHEN 500 MG TABLET PO SCH ×3 (08:20→21:23)
[2016-04-12] MEDS: CHOLECALCIFEROL (VITAMIN D3) 1,000 UNIT TABLET PO SCH (08:20)
[2016-04-12] MEDS: MULTIVITAMIN with MINERAL TABLET. PO SCH (08:20)
[2016-04-12 11:00] VITALS: BP 94/57
--- NOTE | 2016-04-12 11:01 | PDOC3 ---
Discharge Summary Visit Information Date of Admission: Apr 06, 2016 Date of Discharge: Apr 12, 2016 Admitting Diagnosis: fall, hip pain Final Diagnosis 1. R hip fx: ORIF on 04/[address] Macario. recovering appropriately. 2. Hip pain, difficulty Pain control: 3. migrane MAGAÑA 4. relative hypotension on migrane MAGAÑA med Problems Medical Problems: (1) Closed right hip fracture Status: Acute Brief Hospital Course Allergies Allergies Coded Allergies Type Severity Reaction Last Updated Verified NSAIDS (Non-Steroidal Anti-Inflamma Allergy Intermediate Rash 04/06/16 Yes Vital Signs Vital Signs Date Time Temp Pulse Resp B/P Pulse Ox O2 Delivery O2 Flow Rate FiO2 04/12/16 08:20 74 108/64 04/12/16 07:00 98.1 18 96 Room Air 98.1 Lab Results Laboratory Tests Test 04/11/16 05:35 White Blood Count 8.8x10^3/uL (4.0-11.0) Red Blood Count 3.64x10^6/uL (3.50-5.40) Hemoglobin 11.0g/dL (12.0-15.5) Hematocrit 33.6% (36.0-47.0) Mean Corpuscular Volume 92fL (79-100) Mean Corpuscular Hemoglobin 30pg (25-35) Mean Corpuscular Hemoglobin Concent 33g/dL (31-37) Red Cell Distribution Width 14.0% (11.5-14.5) Platelet Count 179x10^3/uL (140-400) Neutrophils (%) (Auto) 65% (31-73) Lymphocytes (%) (Auto) 21% (24-48) Monocytes (%) (Auto) 11% (0-9) Eosinophils (%) (Auto) 3% (0-3) Basophils (%) (Auto) 1% (0-3) Neutrophils # (Auto) 5.7x10^3uL (1.8-7.7) Lymphocytes # (Auto) 1.8x10^3/uL (1.0-4.8) Monocytes # (Auto) 0.9x10^3/uL (0.0-1.1) Eosinophils # (Auto) 0.2x10^3/uL (0.0-0.7) Basophils # (Auto) 0.1x10^3/uL (0.0-0.2) Sodium Level 143mmol/L (136-145) Potassium Level 4.1mmol/L (3.5-5.1) Chloride Level 106mmol/L (98-107) Carbon Dioxide Level 28mmol/L (21-32) Anion Gap 9 (6-14) Blood Urea Nitrogen 12mg/dL (7-20) Creatinine 0.6mg/dL (0.6-1.0) Estimated GFR (Cockcroft-Gault) 98.0 Glucose Level 95mg/dL (70-99) Calcium Level 8.1mg/dL (8.5-10.1) Brief Hospital Course Ms. Fernandez is a 75 oldfell at work at the [employer] at the [employer] right hip pain, fracture to OR, ORIF on 04/[address] Macario. recovering appropriately. arthoplasty Pain control: PO narcotics PRN. she preferred tylenol transition to PO only. ASA 325mg as per ortho for 1 month to Rehab - Prov Place Discharge Information Condition at Discharge: Improved Follow Up: Weeks Disposition/Orders: D/C to Another Facility Scheduled Propranolol Hcl (Propranolol Hcl) 10 MG PO BID (Reported) Scheduled PRN Tramadol Hcl (Tramadol Hcl) 50 MG PO PRN QID PRN PRN PAIN Zolpidem Tartrate (Ambien) 2.5 MG PO PRN QHS PRN PRN INSOMNIA, MAY REPEAT IN 1HR Patient Instructions Patient Instructions add tylenol PRN to med list to Skilled > 35 min concerns about using her long-term care insurance. discussed with social work to Prov place, IPC to follow ADRIAN JENSEN MD Apr 12, 2016 11:01
[2016-04-12 15:00] VITALS: BP 113/47
[2016-04-12 19:00] VITALS: BP 115/66
[2016-04-12] MEDS: ASPIRIN ENTERIC COATED 325 MG TABLET.DR. PO SCH (21:23)
[2016-04-12 23:00] VITALS: BP 102/60
[2016-04-13 02:50] VITALS: BP 130/75
[2016-04-13 07:00] VITALS: BP 103/60
--- NOTE | 2016-04-13 08:58 | PDOC ---
PROGRESS NOTES Chief Complaint Chief Complaint Late entry, pt seen 04/12. I was assured that patient would DC to SNU R hip fx s/p fall ASSESSMENT AND PLAN: 1. R hip fx: ORIF on 04/[address] Macario. recovering appropriately. 2. Pain control: adequate. IV and PO narcotics PRN. transition to PO only. 3. Prophylaxis: ASA 325mg as per ortho 4. Dispo: to Rehab on Mon waiting for SW to eval, hope to dc to rehab tmr. hold propanolol if bp <90/50, which is her home med for migraine ppx . 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 some pain tachycardia and low side bp sometime ' placement pending Vitals Vitals Vital Signs Date Time Temp Pulse Resp B/P Pulse Ox O2 Delivery O2 Flow Rate FiO2 04/13/16 07:00 97.8 75 14 103/60 94 Room Air 97.8 Physical Exam General: Alert, Cooperative Heart: Regular rate Lungs: Clear Abdomen: Normal bowel sounds, No tenderness Extremities: No clubbing, Other (R lat hip covered w/gauze) Skin: No rashes, Other Review of Systems Review of Systems no n/v/d ambulating w/ assist, improved, needs assist Assessment and Plan Assessmemt and Plan Problems Medical Problems: (1) Closed right hip fracture Status: Acute Problems: Comment Review of Relevant I have reviewed the following items cherri (where applicable) has been applied. Medications Current Medications Fentanyl Citrate (Fentanyl 2ml Vial) 100 mcg STK-MED ONCE .ROUTE ; Start at 13:51; Stop 04/06/16 at 13:52; Status DC Fentanyl Citrate (Fentanyl 2ml Vial) 25 mcg 1X ONCE IV Last administered on 14:12; Start 04/06/16 at 14:00; Stop 04/06/16 at 14:01; Status DC Fentanyl Citrate (Fentanyl 2ml Vial) 25 mcg 1X ONCE IV Last administered on 14:55; Start 04/06/16 at 14:45; Stop 04/06/16 at 14:46; Status DC Fentanyl Citrate (Fentanyl 2ml Vial) 50 mcg 1X ONCE IV Last administered on 17:13; Start 04/06/16 at 16:00; Stop 04/06/16 at 16:01; Status DC Ondansetron HCl (Zofran) 4 mg PRN Q8HRS PRN IV NAUSEA/VOMITING Last administered on 04/06/16 17:13; Start 04/06/16 at 16:00; Stop 04/07/16 at 15:59 ; Status DC Fentanyl Citrate (Fentanyl 2ml Vial) 50 mcg PRN Q2HR PRN IV PAIN; Start at 16:00; Stop 04/07/16 at 00:00; Status DC Ketorolac Tromethamine (Toradol) 15 mg 1X ONCE IV ; Start 04/06/16 at 18:15; Stop 04/06/16 at 18:16; Status UNV Oxycodone/ Acetaminophen (Percocet 5/325) 1 tab PRN Q4HRS PRN PO PAIN; Start at 18:15 Potassium Chloride (Klor-Con) 20 meq 1X ONCE PO Last administered on 21:19; Start 04/06/16 at 20:15; Stop 04/06/16 at 20:16; Status DC Ketorolac Tromethamine (Toradol) 15 mg PRN Q6HRS PRN IV PAIN; Start 04/06/16 at 20:15; Stop 04/11/16 at 20:14; Status UNV Acetaminophen (Tylenol) 650 mg PRN Q6HRS PRN PO MILD PAIN / TEMP Last administered on 04/10/16 10:20; Start 04/06/16 at 20:15 Propranolol HCl (Inderal) 10 mg BID PO Last administered on 04/12/16 21:23; Start 04/06/16 at 21:00 Tramadol HCl (Ultram) 50 mg PRN Q6HRS PRN PO PAIN Last administered on 00:44; Start 04/06/16 at 20:15; Stop 04/08/16 at 12:57; Status DC Fentanyl Citrate (Fentanyl 2ml Vial) 25 mcg PRN Q2HR PRN IV SEVERE PAIN Last administered on 04/07/16 01:47; Start 04/06/16 at 22:00; Stop 04/09/16 at 13:19 ; Status DC Zolpidem Tartrate (Ambien) 5 mg PRN QHS PRN PO INSOMNIA, MAY REPEAT IN 1HR Last administered on 04/10/16 00:11; Start 04/06/16 at 22:00 Tobramycin Sulfate 1.2 gm STK-MED ONCE .ROUTE Last administered on 04/07/16 13 :00; Start 04/07/16 at 08:13; Stop 04/07/16 at 08:14; Status DC Vancomycin HCl 1 gm STK-MED ONCE .ROUTE Last administered on 04/07/16 13:00; Start 04/07/16 at 08:13; Stop 04/07/16 at 08:14; Status DC Fentanyl Citrate (Fentanyl 2ml Vial) 50 mcg PRN Q5MIN PRN IV Acute Pain; Start 04/07/16 at 09:00; Stop 04/07/16 at 18:00; Status DC Morphine Sulfate 4 mg PRN Q10MIN PRN IV Moderate Pain; Start 04/07/16 at 09:00 ; Stop 04/07/16 at 18:00; Status DC Hydromorphone HCl (Dilaudid) 0.4 mg PRN Q10MIN PRN IV Moderate to severe pain; Start 04/07/16 at 09:00; Stop 04/07/16 at 18:00; Status DC Meperidine HCl (Demerol) 12.5 mg PRN Q5MIN PRN IV SHIVERING; Start 04/07/16 at 09:00; Stop 04/08/16 at 08:59; Status DC Prochlorperazine Edisylate (Compazine) 5 mg PRN Q6HRS PRN IV Nausea/Vomiting, 1st Choice; Start 04/07/16 at 09:00; Stop 04/07/16 at 18:00; Status DC Diphenhydramine HCl 12.5 mg 12.5 mg PRN Q2HR PRN IV ITCHING; Start 04/07/16 at 09:00; Stop 04/07/16 at 18:00; Status DC Cefazolin Sodium 50 ml @ 100 mls/hr 1X PREOP PRN IV see comments Last administered on 04/07/16 12:40; Start 04/07/16 at 09:45; Stop 04/09/16 at 13:03 ; Status DC Lactated Ringer's 1,000 ml @ 100 mls/hr Q10H IV Last administered on 11:10; Start 04/07/16 at 11:15; Stop 04/08/16 at 21:49; Status DC Tranexamic Acid 1000 mg/Sodium Chloride 60 ml @ 60 mls/hr 1X PERIOP ONCE INJ Last administered on 04/07/16 12:50; Start 04/07/16 at 12:00; Stop 04/07/16 at 13:10; Status DC Tranexamic Acid 1000 mg/Sodium Chloride 60 ml @ 60 mls/hr 1X PERIOP ONCE INJ Last administered on 04/07/16 13:39; Start 04/07/16 at 13:00; Stop 04/07/16 at 14:02; Status DC Morphine Sulfate 5 mg/Ropivacaine 60 ml/Epinephrine HCl 0.5 mg/Sodium Chloride 99.5 ml @ 99.5 mls/hr 1X PERIOP ONCE INT ART Last administered on 04/07/16 13:00; Start 04/07/16 at 12:00; Stop 04/07/16 at 13:10; Status DC Propofol (Diprivan) 100 ml @ As Directed STK-MED ONCE IV ; Start 04/07/16 at 11 :30; Stop 04/07/16 at 11:31; Status DC Ketamine HCl 500 mg STK-MED ONCE .ROUTE ; Start 04/07/16 at 11:32; Stop at 11:33; Status DC Dexamethasone Sodium Phosphate (Decadron) 20 mg STK-MED ONCE .ROUTE ; Start at 11:36; Stop 04/07/16 at 11:37; Status DC Ondansetron HCl (Zofran) 4 mg STK-MED ONCE .ROUTE ; Start 04/07/16 at 11:36; Stop 04/07/16 at 11:37; Status DC Famotidine (Pepcid) 20 mg STK-MED ONCE .ROUTE ; Start 04/07/16 at 11:36; Stop at 11:37; Status DC Fentanyl Citrate (Fentanyl 2ml Vial) 100 mcg STK-MED ONCE .ROUTE ; Start at 11:38; Stop 04/07/16 at 11:39; Status DC Midazolam HCl (Versed) 2 mg STK-MED ONCE .ROUTE ; Start 04/07/16 at 12:12; Stop 04/07/16 at 12:13; Status DC Epinephrine HCl (Adrenalin) 30 mg STK-MED ONCE .ROUTE Last administered on 04/07 13:00; Start 04/07/16 at 12:55; Stop 04/07/16 at 12:56; Status DC Phenylephrine HCl 1 mg STK-MED ONCE IV ; Start 04/07/16 at 12:59; Stop 04/07/16 at 13:00; Status DC Ephedrine Sulfate 50 mg 50 mg STK-MED ONCE IV ; Start 04/07/16 at 13:00; Stop at 13:01; Status DC Acetaminophen (Ofirmev) 100 ml @ As Directed STK-MED ONCE IV ; Start 04/07/16 at 13:42; Stop 04/07/16 at 13:43; Status DC Tramadol HCl (Ultram) 50 mg PRN QID PRN PO PAIN Last administered on 04/08/16 16:51; Start 04/07/16 at 14:00 Oxycodone HCl (Roxicodone) 5 mg PRN Q3HRS PRN PO PAIN; Start 04/07/16 at 14:00 Morphine Sulfate 2 mg PRN Q1HR PRN IV SEVERE PAIN; Start 04/07/16 at 14:00 Fentanyl Citrate (Fentanyl 2ml Vial) 25 mcg PRN Q1HR PRN IV PAIN; Start at 14:00 Acetaminophen (Tylenol) 500 mg TID PO Last administered on 04/12/16 21:23; Start 04/07/16 at 14:00 Multivitamins/ Calcium (Thera M Plus) 1 tab DAILY PO Last administered on 08:20; Start 04/08/16 at 09:00 Senna/Docusate Sodium (Senna Plus) 1 tab DAILY PO Last administered on 09:17; Start 04/08/16 at 09:00 Polyethylene Glycol (miraLAX PACKET) 17 gm PRN DAILY PRN PO CONSTIPATION; Start 04/07/16 at 14:00 Vitamin D 1000 unit 1,000 unit DAILY PO Last administered on 04/12/16 08:20; Start 04/08/16 at 09:00 Sodium Chloride (Iv Sodium Chloride 0.45%) 1,000 ml @ 75 mls/hr [id number] IV Last administered on 04/08/16 05:25; Start 04/07/16 at 13:49; Stop 04/08/16 at 21:49; Status DC Ondansetron HCl (Zofran) 4 mg PRN Q4HRS PRN IV NAUSEA/VOMITING; Start 04/07/16 at 14:00 Magnesium Hydroxide (Milk Of Magnesia) 2,400 mg 1X PRN PRN PO CONSTIPATION; Start 04/08/16 at 06:00; Stop 04/09/16 at 05:59; Status DC Bisacodyl 10 mg 10 mg 1X PRN PRN [place] CONSTIPATION; Start 04/08/16 at 16:00; Stop 04/09/16 at 15:59; Status DC Bupivacaine HCl/ Epinephrine HCl/ Miscellaneous (Sensorcaine Mpf 0.25%/Adrenalin ) 42.0 ml @ 258 mls/hr Q12H INT ART Last administered on 04/08/16 05:48; Start 04/07/16 at 18:00; Stop 04/08/16 at 06:10; Status DC Acetaminophen/ Hydrocodone Bitart (Lortab 7.5/325) 1 tab PRN Q4HRS PRN PO MODERATE PAIN; Start 04/07/16 at 14:00 Morphine Sulfate 4 mg PRN Q2HR PRN IV SEVERE PAIN; Start 04/07/16 at 14:00 Acetaminophen/ Hydrocodone Bitart (Lortab 7.5/325) 2 tab PRN Q4HRS PRN PO MODERATE PAIN; Start 04/07/16 at 14:00 Dextrose 12.5 gm 12.5 gm PRN Q15MIN PRN IV SEE COMMENTS; Start 04/07/16 at 14: 00 Cefazolin Sodium/ Sodium Chloride (Ancef/Iv Sodium Chloride 0.9% 50ml) 50 ml @ 100 mls/hr Q6H IV Last administered on 04/08/16 05:47; Start 04/07/16 at 18:00 ; Stop 04/08/16 at 06:29; Status DC Propranolol HCl (Inderal) 10 mg BID PO ; Start 04/07/16 at 21:00; Status Cancel Enoxaparin Sodium (Lovenox 40mg Syringe) 40 mg Q24H SQ Last administered on 15:51; Start 04/08/16 at 14:00; Stop 04/10/16 at 11:35; Status DC Aspirin (Ecotrin) 325 mg QHS PO Last administered on 04/12/16 21:23; Start at 21:00; Stop 05/10/16 at 20:59 Enoxaparin Sodium 40 mg 40 mg Q24H SQ Last administered on 04/10/16 14:03; Start 04/10/16 at 14:00; Stop 04/11/16 at 23:00; Status DC Sodium Chloride (Iv Sodium Chloride 0.9% 1000ml Bag) 1,000 ml @ 75 mls/hr 1X ONCE IV Last administered on 04/10/16 12:44; Start 04/10/16 at 12:30; Stop at 01:49; Status DC Enoxaparin Sodium (Lovenox 40mg Syringe) 40 mg 1X ONCE SQ ; Start 04/11/16 at 13:15; Stop 04/11/16 at 13:16; Status DC Active Scripts Active Ambien (Zolpidem Tartrate) 5 Mg Tablet 2.5 Mg PO PRN QHS PRN Tramadol Hcl 50 Mg Tablet 50 Mg PO PRN QID PRN Reported Propranolol Hcl 10 Mg Tablet 10 Mg PO BID Vitals/I & O Vital Sign - Last 24 Hours 04/12/16 04/12/16 04/12/16 04/12/16 11:00 15:00 19:00 20:00 Temp 97.5 97.9 98.1 97.5 97.9 98.1 Pulse 70 74 80 Resp 18 18 B/P 94/57 113/47 115/66 Pulse Ox 93 98 98 O2 Delivery Room Air Room Air Room Air Room Air 04/12/16 04/12/16 04/13/16 04/13/16 21:23 23:00 02:50 07:00 Temp 98.4 98.2 97.8 98.4 98.2 97.8 Pulse 80 77 78 75 Resp 18 16 14 B/P 115/66 102/60 130/75 103/60 Pulse Ox 93 98 94 O2 Delivery Room Air Room Air Room Air Intake and Output 04/12/16 04/12/16 04/13/16 15:00 23:00 07:00 Intake Total 700 ml 500 ml Balance 700 ml 500 ml ADRIAN JENSEN MD Apr 13, 2016 08:58
[2016-04-13] MEDS: SENNOSIDES/DOCUSATE 8.6/50MG TABLET. PO SCH ×2 (09:00→09:10)
[2016-04-13] MEDS: CHOLECALCIFEROL (VITAMIN D3) 1,000 UNIT TABLET PO SCH (09:10)
[2016-04-13] MEDS: MULTIVITAMIN with MINERAL TABLET. PO SCH (09:10)
[2016-04-13] MEDS: ACETAMINOPHEN 500 MG TABLET PO SCH ×3 (09:10→21:07)
[2016-04-13] MEDS: PROPRANOLOL 10 MG TABLET. PO SCH ×2 (09:10→21:07)
[2016-04-13 11:00] VITALS: BP 112/57
[2016-04-13 15:00] VITALS: BP 108/59
[2016-04-13 19:00] VITALS: BP 115/60
[2016-04-13] MEDS: ASPIRIN ENTERIC COATED 325 MG TABLET.DR. PO SCH (21:07)
[2016-04-13 23:00] VITALS: BP 116/60
[2016-04-14 03:00] VITALS: BP 91/45
[2016-04-14 07:00] VITALS: BP 105/66
[2016-04-14] MEDS: SENNOSIDES/DOCUSATE 8.6/50MG TABLET. PO SCH (09:00)
--- NOTE | 2016-04-14 09:20 | PDOC ---
PROGRESS NOTES Chief Complaint Chief Complaint Closed Right Hip Fx- s/p ORIF 1. R hip fx: ORIF on 04/[address] Macario 2. Chronic Migraine Headaches History of Present Illness History of Present Illness Pt doing well today. Up talking on phone with family. Still has some pain and discomfort in R hip that is improved with pain medication. Had questions on plans for discharge- informed pt that SW in process of finding placement and having issues. [facility]- Plan is for pt to go to SNU but pending approval because of issues with workman's comp investigation; in process of finding placement Vitals Vitals Vital Signs Date Time Temp Pulse Resp B/P Pulse Ox O2 Delivery O2 Flow Rate FiO2 04/14/16 07:00 98.1 77 18 105/66 93 Room Air 98.1 Physical Exam General: Alert, Oriented X3, Cooperative, No acute distress Heart: Regular rate, Normal S1, Normal S2, No murmurs Lungs: Clear, Other (No Wheezes) Abdomen: Normal bowel sounds, Soft, No tenderness Extremities: No clubbing, No edema, Other (R lat hip has Dressing C/D/I) Skin: No rashes, No breakdown Review of Systems Review of Systems Pt complaining of pain at right hip Pt complaining of weakness All other ROS Negative Assessment and Plan Assessmemt and Plan Problems Medical Problems: (1) Closed right hip fracture Status: Acute 1. Closed R hip fx: ORIF on 04/[address] Macario 2. Chronic Migraine Headaches Plan: - Continue Care per Floor protocol - Continue Regular Vitals at this time - Pain control- PO narcotics in place PRN for discharge - Ortho on Case: appreciate recommendations and treatment- pt S/p ORIF for right hip fracture - Will continue Prophylaxis: ASA 325mg as per ortho - Patients home medications in place - Hold Propanolol for BP <90/50 - Propanolol is Migraine PPX Medication - PT/OT on case to eval and treat - SW consulted: awaiting placement Dispo: to Rehab when placement found by SW Problems: Comment Review of Relevant I have reviewed the following items cherri (where applicable) has been applied. Medications Current Medications Fentanyl Citrate (Fentanyl 2ml Vial) 100 mcg STK-MED ONCE .ROUTE ; Start at 13:51; Stop 04/06/16 at 13:52; Status DC Fentanyl Citrate (Fentanyl 2ml Vial) 25 mcg 1X ONCE IV Last administered on 14:12; Start 04/06/16 at 14:00; Stop 04/06/16 at 14:01; Status DC Fentanyl Citrate (Fentanyl 2ml Vial) 25 mcg 1X ONCE IV Last administered on 14:55; Start 04/06/16 at 14:45; Stop 04/06/16 at 14:46; Status DC Fentanyl Citrate (Fentanyl 2ml Vial) 50 mcg 1X ONCE IV Last administered on 17:13; Start 04/06/16 at 16:00; Stop 04/06/16 at 16:01; Status DC Ondansetron HCl (Zofran) 4 mg PRN Q8HRS PRN IV NAUSEA/VOMITING Last administered on 04/06/16 17:13; Start 04/06/16 at 16:00; Stop 04/07/16 at 15:59 ; Status DC Fentanyl Citrate (Fentanyl 2ml Vial) 50 mcg PRN Q2HR PRN IV PAIN; Start at 16:00; Stop 04/07/16 at 00:00; Status DC Ketorolac Tromethamine (Toradol) 15 mg 1X ONCE IV ; Start 04/06/16 at 18:15; Stop 04/06/16 at 18:16; Status UNV Oxycodone/ Acetaminophen (Percocet 5/325) 1 tab PRN Q4HRS PRN PO PAIN; Start at 18:15 Potassium Chloride (Klor-Con) 20 meq 1X ONCE PO Last administered on 21:19; Start 04/06/16 at 20:15; Stop 04/06/16 at 20:16; Status DC Ketorolac Tromethamine (Toradol) 15 mg PRN Q6HRS PRN IV PAIN; Start 04/06/16 at 20:15; Stop 04/11/16 at 20:14; Status UNV Acetaminophen (Tylenol) 650 mg PRN Q6HRS PRN PO MILD PAIN / TEMP Last administered on 04/10/16 10:20; Start 04/06/16 at 20:15 Propranolol HCl (Inderal) 10 mg BID PO Last administered on 04/13/16 21:07; Start 04/06/16 at 21:00 Tramadol HCl (Ultram) 50 mg PRN Q6HRS PRN PO PAIN Last administered on 00:44; Start 04/06/16 at 20:15; Stop 04/08/16 at 12:57; Status DC Fentanyl Citrate (Fentanyl 2ml Vial) 25 mcg PRN Q2HR PRN IV SEVERE PAIN Last administered on 04/07/16 01:47; Start 04/06/16 at 22:00; Stop 04/09/16 at 13:19 ; Status DC Zolpidem Tartrate (Ambien) 5 mg PRN QHS PRN PO INSOMNIA, MAY REPEAT IN 1HR Last administered on 04/10/16 00:11; Start 04/06/16 at 22:00 Tobramycin Sulfate 1.2 gm STK-MED ONCE .ROUTE Last administered on 04/07/16 13 :00; Start 04/07/16 at 08:13; Stop 04/07/16 at 08:14; Status DC Vancomycin HCl 1 gm STK-MED ONCE .ROUTE Last administered on 04/07/16 13:00; Start 04/07/16 at 08:13; Stop 04/07/16 at 08:14; Status DC Fentanyl Citrate (Fentanyl 2ml Vial) 50 mcg PRN Q5MIN PRN IV Acute Pain; Start 04/07/16 at 09:00; Stop 04/07/16 at 18:00; Status DC Morphine Sulfate 4 mg PRN Q10MIN PRN IV Moderate Pain; Start 04/07/16 at 09:00 ; Stop 04/07/16 at 18:00; Status DC Hydromorphone HCl (Dilaudid) 0.4 mg PRN Q10MIN PRN IV Moderate to severe pain; Start 04/07/16 at 09:00; Stop 04/07/16 at 18:00; Status DC Meperidine HCl (Demerol) 12.5 mg PRN Q5MIN PRN IV SHIVERING; Start 04/07/16 at 09:00; Stop 04/08/16 at 08:59; Status DC Prochlorperazine Edisylate (Compazine) 5 mg PRN Q6HRS PRN IV Nausea/Vomiting, 1st Choice; Start 04/07/16 at 09:00; Stop 04/07/16 at 18:00; Status DC Diphenhydramine HCl 12.5 mg 12.5 mg PRN Q2HR PRN IV ITCHING; Start 04/07/16 at 09:00; Stop 04/07/16 at 18:00; Status DC Cefazolin Sodium 50 ml @ 100 mls/hr 1X PREOP PRN IV see comments Last administered on 04/07/16 12:40; Start 04/07/16 at 09:45; Stop 04/09/16 at 13:03 ; Status DC Lactated Ringer's 1,000 ml @ 100 mls/hr Q10H IV Last administered on 11:10; Start 04/07/16 at 11:15; Stop 04/08/16 at 21:49; Status DC Tranexamic Acid 1000 mg/Sodium Chloride 60 ml @ 60 mls/hr 1X PERIOP ONCE INJ Last administered on 04/07/16 12:50; Start 04/07/16 at 12:00; Stop 04/07/16 at 13:10; Status DC Tranexamic Acid 1000 mg/Sodium Chloride 60 ml @ 60 mls/hr 1X PERIOP ONCE INJ Last administered on 04/07/16 13:39; Start 04/07/16 at 13:00; Stop 04/07/16 at 14:02; Status DC Morphine Sulfate 5 mg/Ropivacaine 60 ml/Epinephrine HCl 0.5 mg/Sodium Chloride 99.5 ml @ 99.5 mls/hr 1X PERIOP ONCE INT ART Last administered on 04/07/16 13:00; Start 04/07/16 at 12:00; Stop 04/07/16 at 13:10; Status DC Propofol (Diprivan) 100 ml @ As Directed STK-MED ONCE IV ; Start 04/07/16 at 11 :30; Stop 04/07/16 at 11:31; Status DC Ketamine HCl 500 mg STK-MED ONCE .ROUTE ; Start 04/07/16 at 11:32; Stop at 11:33; Status DC Dexamethasone Sodium Phosphate (Decadron) 20 mg STK-MED ONCE .ROUTE ; Start at 11:36; Stop 04/07/16 at 11:37; Status DC Ondansetron HCl (Zofran) 4 mg STK-MED ONCE .ROUTE ; Start 04/07/16 at 11:36; Stop 04/07/16 at 11:37; Status DC Famotidine (Pepcid) 20 mg STK-MED ONCE .ROUTE ; Start 04/07/16 at 11:36; Stop at 11:37; Status DC Fentanyl Citrate (Fentanyl 2ml Vial) 100 mcg STK-MED ONCE .ROUTE ; Start at 11:38; Stop 04/07/16 at 11:39; Status DC Midazolam HCl (Versed) 2 mg STK-MED ONCE .ROUTE ; Start 04/07/16 at 12:12; Stop 04/07/16 at 12:13; Status DC Epinephrine HCl (Adrenalin) 30 mg STK-MED ONCE .ROUTE Last administered on 04/07 13:00; Start 04/07/16 at 12:55; Stop 04/07/16 at 12:56; Status DC Phenylephrine HCl 1 mg STK-MED ONCE IV ; Start 04/07/16 at 12:59; Stop 04/07/16 at 13:00; Status DC Ephedrine Sulfate 50 mg 50 mg STK-MED ONCE IV ; Start 04/07/16 at 13:00; Stop at 13:01; Status DC Acetaminophen (Ofirmev) 100 ml @ As Directed STK-MED ONCE IV ; Start 04/07/16 at 13:42; Stop 04/07/16 at 13:43; Status DC Tramadol HCl (Ultram) 50 mg PRN QID PRN PO PAIN Last administered on 04/08/16 16:51; Start 04/07/16 at 14:00 Oxycodone HCl (Roxicodone) 5 mg PRN Q3HRS PRN PO PAIN; Start 04/07/16 at 14:00 Morphine Sulfate 2 mg PRN Q1HR PRN IV SEVERE PAIN; Start 04/07/16 at 14:00 Fentanyl Citrate (Fentanyl 2ml Vial) 25 mcg PRN Q1HR PRN IV PAIN; Start at 14:00 Acetaminophen (Tylenol) 500 mg TID PO Last administered on 04/13/16 21:07; Start 04/07/16 at 14:00 Multivitamins/ Calcium (Thera M Plus) 1 tab DAILY PO Last administered on 09:10; Start 04/08/16 at 09:00 Senna/Docusate Sodium (Senna Plus) 1 tab DAILY PO Last administered on 09:17; Start 04/08/16 at 09:00 Polyethylene Glycol (miraLAX PACKET) 17 gm PRN DAILY PRN PO CONSTIPATION; Start 04/07/16 at 14:00 Vitamin D 1000 unit 1,000 unit DAILY PO Last administered on 04/13/16 09:10; Start 04/08/16 at 09:00 Sodium Chloride (Iv Sodium Chloride 0.45%) 1,000 ml @ 75 mls/hr [id number] IV Last administered on 04/08/16 05:25; Start 04/07/16 at 13:49; Stop 04/08/16 at 21:49; Status DC Ondansetron HCl (Zofran) 4 mg PRN Q4HRS PRN IV NAUSEA/VOMITING; Start 04/07/16 at 14:00 Magnesium Hydroxide (Milk Of Magnesia) 2,400 mg 1X PRN PRN PO CONSTIPATION; Start 04/08/16 at 06:00; Stop 04/09/16 at 05:59; Status DC Bisacodyl 10 mg 10 mg 1X PRN PRN [place] CONSTIPATION; Start 04/08/16 at 16:00; Stop 04/09/16 at 15:59; Status DC Bupivacaine HCl/ Epinephrine HCl/ Miscellaneous (Sensorcaine Mpf 0.25%/Adrenalin ) 42.0 ml @ 258 mls/hr Q12H INT ART Last administered on 04/08/16 05:48; Start 04/07/16 at 18:00; Stop 04/08/16 at 06:10; Status DC Acetaminophen/ Hydrocodone Bitart (Lortab 7.5/325) 1 tab PRN Q4HRS PRN PO MODERATE PAIN; Start 04/07/16 at 14:00 Morphine Sulfate 4 mg PRN Q2HR PRN IV SEVERE PAIN; Start 04/07/16 at 14:00 Acetaminophen/ Hydrocodone Bitart (Lortab 7.5/325) 2 tab PRN Q4HRS PRN PO MODERATE PAIN; Start 04/07/16 at 14:00 Dextrose 12.5 gm 12.5 gm PRN Q15MIN PRN IV SEE COMMENTS; Start 04/07/16 at 14: 00 Cefazolin Sodium/ Sodium Chloride (Ancef/Iv Sodium Chloride 0.9% 50ml) 50 ml @ 100 mls/hr Q6H IV Last administered on 04/08/16 05:47; Start 04/07/16 at 18:00 ; Stop 04/08/16 at 06:29; Status DC Propranolol HCl (Inderal) 10 mg BID PO ; Start 04/07/16 at 21:00; Status Cancel Enoxaparin Sodium (Lovenox 40mg Syringe) 40 mg Q24H SQ Last administered on 15:51; Start 04/08/16 at 14:00; Stop 04/10/16 at 11:35; Status DC Aspirin (Ecotrin) 325 mg QHS PO Last administered on 04/13/16 21:07; Start at 21:00; Stop 05/10/16 at 20:59 Enoxaparin Sodium 40 mg 40 mg Q24H SQ Last administered on 04/10/16 14:03; Start 04/10/16 at 14:00; Stop 04/11/16 at 23:00; Status DC Sodium Chloride (Iv Sodium Chloride 0.9% 1000ml Bag) 1,000 ml @ 75 mls/hr 1X ONCE IV Last administered on 04/10/16 12:44; Start 04/10/16 at 12:30; Stop at 01:49; Status DC Enoxaparin Sodium (Lovenox 40mg Syringe) 40 mg 1X ONCE SQ ; Start 04/11/16 at 13:15; Stop 04/11/16 at 13:16; Status DC Active Scripts Active Ambien (Zolpidem Tartrate) 5 Mg Tablet 2.5 Mg PO PRN QHS PRN Tramadol Hcl 50 Mg Tablet 50 Mg PO PRN QID PRN Reported Propranolol Hcl 10 Mg Tablet 10 Mg PO BID Vitals/I & O Vital Sign - Last 24 Hours 04/13/16 04/13/16 04/13/16 04/13/16 09:10 11:00 15:00 19:00 Temp 98.2 97.3 98.5 98.2 97.3 98.5 Pulse 70 82 82 82 Resp 14 14 18 B/P 103/65 112/57 108/59 115/60 Pulse Ox 98 100 99 O2 Delivery Room Air Room Air Room Air 2/22/17 2/22/17 2/23/17 2/23/17 21:07 23:00 03:00 07:00 Temp 98.7 97.3 98.1 98.7 97.3 98.1 Pulse 82 72 77 77 Resp 18 20 18 B/P 115/60 116/60 91/45 105/66 Pulse Ox 96 95 93 O2 Delivery Room Air Room Air Room Air NBA WERNER III DO Apr 14, 2016 09:20
[2016-04-14] MEDS: ACETAMINOPHEN 500 MG TABLET PO SCH ×2 (10:09→14:23)
[2016-04-14] MEDS: MULTIVITAMIN with MINERAL TABLET. PO SCH (10:09)
[2016-04-14] MEDS: PROPRANOLOL 10 MG TABLET. PO SCH (10:09)
[2016-04-14] MEDS: CHOLECALCIFEROL (VITAMIN D3) 1,000 UNIT TABLET PO SCH (10:10)
[2016-04-14 11:00] VITALS: BP 108/61
== END 2016-04-14 15:10 | DRG 470 ==
LOC: ER 13:19 → 4 NORTH 15:49
PROVIDERS: ADMIT Internal Medicine; ATTEND Internal Medicine
PROC: 0SRR0J9 Replacement of Right Hip Joint, Femoral Surface with Synthetic Substitute, Cemented, Open Approach (ICD-10-PCS; principal; 2016-04-07 11:30)
DX: S72.011A Unspecified intracapsular fracture of right femur, initial encounter for closed fracture (principal); G43.909 Migraine, unspecified, not intractable, without status migrainosus; W01.0XXA Fall on same level from slipping, tripping and stumbling without subsequent striking against object, initial encounter; I95.9 Hypotension, unspecified; Z90.710 Acquired absence of both cervix and uterus; Y93.89 Activity, other specified; Y92.89 Other specified places as the place of occurrence of the external cause; Y99.8 Other external cause status; T50.995A Adverse effect of other drugs, medicaments and biological substances, initial encounter
CPT/HCPCS: 36415; 70450; 73501; 73502; 73562; 80048; 80053; 85007; 85027; 85610; 86850; 86900; 86901; 87641; 88305; 88311; 93005; 96374; 96375; 96376; J0131; J0171; J0690; J1100; J1650; J2250; J2270; J2370; J2405; J2704; J2795; J3010; J3260; J3370; J3490; J7030; J7120; S0028; 97110; 97116; 97530; 97535; 99285-25